=== PATIENT | female | born 1940 | race Caucasian/White ===

== ENCOUNTER 2017-11-01 14:57 | Inpatient (IN) | payer MEDICARE ==
[2017-11-01 15:22] LABS: #Eosinphils 0.1 thou/uL (0.0-0.7); #Lymphocytes 2.1 thou/uL (1.20-3.40); #Monocytes 0.6 thou/uL (0.11-0.59); #Neutrophils 7.6 thou/uL (1.40-6.50); %Basophils 0.5 % (0.0-1.0); %Eosinophils 0.9 % (0.0-10.0); %Lymphocytes 20.2 % (21.0-51.0); %Monocytes 5.8 % (0.0-10.0); %Neutrophils 72.6 % (42.0-75.0); Mean Corpuscular HGB CONC 36.7 g/dL (32.0-36.0); Mean Corpuscular Hemoglobin 32.6 pg (27.0-31.0); Mean Corpuscular Volume 88.8 fL (78.0-98.0); Mean Platelet Volume 8.1 fL (7.4-10.4); Platelet Count 232 thou/uL (130-400); White Blood Cell (WBC) Count 10.5 thou/uL (4.8-10.8)
[2017-11-01 15:43] LABS: ALT (SGPT) 35 U/L (8-55); AST (SGOT) 56 U/L (5-34); Albumin 4.1 g/dL (3.4-4.8); Alkaline Phosphatase 50 U/L (40-150); Anion Gap 17 mmol/L (10-20); BUN (Urea Nitrogen) 25 mg/dL (9.8-20.1); Bilirubin, Total 0.6 mg/dL (0.2-1.2); Calc. Creatinine Clearance 0 mL/min (70-130); Calcium 9.8 mg/dL (7.8-10.44); Carbon Dioxide 22 mmol/L (23-31); Chloride 100 mmol/L (98-107); Estimated GFR-MDRD 36; Glucose 408 mg/dL (83-110); Potassium 4.9 mmol/L (3.5-5.1); Protein, Total 7.1 g/dL (6.0-8.3); Sodium 134 mmol/L (136-145)
[2017-11-01 15:46] LABS: CKMB 0.9 ng/mL (0-6.6); Troponin I Less than 0.010 ng/mL (< 0.028)
[2017-11-01] MEDS ORDERED: Insulin Regular 300 UNITS/3 ML VIAL ONE (16:07)
[2017-11-01] MEDS ORDERED: HumaLOG 300 UNITS/3 ML VIAL SC PRN (16:25)
[2017-11-01] MEDS ORDERED: Acetaminophen 325 MG TAB PO PRN (16:25)
[2017-11-01] MEDS ORDERED: Ondansetron HCl/PF 4 MG/2 ML Vial IVP PRN (16:25)
[2017-11-01] MEDS ORDERED: Nitroglycerin 0.4 MG TAB (25 Tab Bottle) SL PRN (16:25)
[2017-11-01] MEDS ORDERED: hydrALAZINE 20 MG/ML VIAL SLOW IVP PRN (16:25)
[2017-11-01] MEDS ORDERED: Benzonatate 100 MG CAP PO PRN (16:25)
[2017-11-01] MEDS ORDERED: Loratadine 10 MG TAB PO PRN (16:25)
[2017-11-01] MEDS ORDERED: Bisacodyl 5 MG TAB PO PRN (16:25)
[2017-11-01] MEDS ORDERED: Senokot 8.6 MG TAB PO PRN (16:25)
[2017-11-01] MEDS ORDERED: Dextrose 50% Abboject 50 ML SYRINGE SLOW IVP PRN (16:25)
[2017-11-01] MEDS ORDERED: cloNIDine 0.1 MG TAB PO PRN (16:25)
[2017-11-01] MEDS ORDERED: traMADol HCl 50 MG TAB PO PRN (16:25)
[2017-11-01] MEDS ORDERED: Mag-Al 1200 mg/1200 mg/30 ML UDCUP PO PRN (16:25)
[2017-11-01] MEDS ORDERED: Dextrose 5% in Water 1,000 ML IV PRN (16:25)
[2017-11-01] MEDS ORDERED: Calcium Carbonate 500 MG ChewTAB PO PRN (16:25)
[2017-11-01 16:44] LABS: Hemoglobin A1c 9.8 % (4.0-6.0)
[2017-11-01 17:31] VITALS: BMI 31.4
[2017-11-01] MEDS: Sodium Chloride 0.9% 1,000 ML IV SCH (18:24)
[2017-11-01] MEDS ORDERED: Hydrochlorothiazide 25 MG TAB PO SCH (18:45)
[2017-11-01 18:55] LABS: Troponin I Less than 0.010 ng/mL (< 0.028)
--- NOTE | 2017-11-01 19:28 | RAD ---
PORTABLE CHEST ONE VIEW: Date: 11-01-17 Time: 6:37 a.m. History: Shortness of breath. FINDINGS: Comparison is made with exam of 05-08-05. The heart size is normal. The lungs are expanded without lobar consolidation, pneumothoraces or pleur al effusions. There are degenerative changes in the spine. IMPRESSION: No acute process. POS: [facility]
--- NOTE | 2017-11-01 19:31 | HP ---
DATE OF ADMISSION: 11/01/2017 PRIMARY CARE PHYSICIAN: Jessica Ayala M.D. CHIEF COMPLAINT: Dizziness and slow heart rate and low blood pressure and high blood sugar. HISTORY OF PRESENT ILLNESS: Ms. Ring is a very pleasant 77-year-old female with past medical histo ry of diabetes, hypertension, gout and dyslipidemia who presented to the emergency room with above-me ntioned complaint. History is mainly obtained by the patient herself and supplemented by her present in the room. Case has been discussed with admitting ER physician. Ms. Ring reports that she has been in her usual health up until this morning. Actually, since last morning, she feels that she has been a little bit confused. This morning, she was feeling dizzy whe n she woke up, but she managed to get her shower down. Later, she took more than her usual time in g etting ready for denominational and ended up not going because she was very slow. Later, when her ca me back, he found her still sitting on the dresser as he has left a few hours ago. She was still fee ling dizzy and not looking right. At that time, he checked her blood pressure and heart rate and her blood pressure was low with systolic blood pressure in the 80s and diastolic in the 50s. Her heart rate was consistently staying in the 30s. They also checked her blood sugar, which was reading very high above 400. At that time, they decided to bring her in. Other than that, the patient denies any similar symptoms in the past. She denies any recent illnesse s. She denies any chest pain or palpitations. She did feel short of breath when these symptoms were happening today. She denies any orthopnea, PND or lower extremity swelling. No abdominal pain, phu sea, vomiting or diarrhea. She does report that she easily gets dehydrated because her oral intake i s usually very poor. She has been stable on atenolol and verapamil among other blood pressure medication for a few years. She denies any recent changes in the medications or any recent new medications. Upon presentation to the ER, she was found to be bradycardic in the 50s, but not as bad as what was a t home. She underwent a general evaluation and her EKG showed sinus bradycardia with few PVCs and fi rst-degree AV block without any specific ST or T-wave changes or arrhythmias. Her blood work suggest ed acute kidney insufficiency and dehydration with BUN of 25, creatinine of 1.41. She was also found to be significantly hyperglycemic with a blood sugar of 408. She was resuscitated with IV fluids an d other than that, she did not require any imaging or intervention in the ER and is now being admitte d for further workup for sinus bradycardia. Since presentation to the floor, the patient has been qu ite hypertensive with her blood pressure of 190/84. PAST MEDICAL HISTORY: 1. Hypertension. 2. Gout. 3. Dyslipidemia. 4. Diabetes mellitus, non-insulin dependent. PAST SURGICAL HISTORY: 1. Bilateral tubal ligation. 2. Appendectomy. 3. section. PSYCHIATRIC HISTORY: No anxiety or depression. SOCIAL HISTORY: She quit smoking in 1971. Lives with her . No history of any alcohol or rajwinder g abuse. FAMILY HISTORY: Dad had diabetes. Otherwise, no significant family history of premature coronary ar [place] disease or stroke. ALLERGIES: Known allergies include ENALAPRIL, ERYTHROMYCIN. CURRENT MEDICATIONS: Include atenolol 100 mg p.o. b.i.d., verapamil 120 mg daily, Levemir 20 units a t bedtime, Vascepa 2 g p.o. b.i.d., hydrochlorothiazide 25 mg daily, fenofibric acid 160 mg daily, No rvasc 10 mg daily, amitriptyline 200 mg at bedtime. REVIEW OF SYSTEMS: Twelve-point review of systems is done and it is negative except for those mentio meg in the history and physical. LABORATORY DATA: Her CBC shows WBCs at 10.5, hemoglobin 14, platelet count of 232,000. Serum chemis try shows sodium of 134, bicarbonate 22, BUN 25, creatinine 1.41, blood sugar 408 with repeat blood s ugar of 295. Her hemoglobin A1c is elevated at 9.8. Cardiac enzymes, troponin less than 0.010 x2 an d CK-MB 0.9. She has mild elevation of her AST to 56 without any other lab abnormalities in the live r enzymes. IMAGING: A 12-lead EKG was reviewed by myself and shows first-degree AV block with sinus rhythm at 5 1 beats per minute. PHYSICAL EXAMINATION: VITAL SIGNS: Upon presentation to the emergency room, heart rate 50, respirations 18, saturating 95% on room air, temperature 97.8, blood pressure 161/78. GENERAL: No acute distress. The patient does appear somewhat slow, but is awake, alert, oriented x3 . HEENT: Mucous membrane is actually dry. No oropharyngeal exudate or erythema. Head is normocephali c, atraumatic. Pupils equal and reactive to light and accommodation. Extraocular movements intact. NECK: Supple without any lymphadenopathy, JVD or bruit. CHEST: Clear to auscultation without any wheezing, rales or rhonchi. Rate and rhythm is regular wit hout any murmur, rubs or gallops. ABDOMEN: Obese, soft, nontender, nondistended with positive bowel sounds. EXTREMITIES: Showed trace pitting edema bilaterally. NEUROLOGIC: Nonfocal. SKIN: Free of any rashes or bruises. Feel warm and dry to touch. PSYCHIATRIC: Normal affect. IMPRESSION AND PLAN: 1. Sinus bradycardia. This is most likely secondary to multiple sinus jessica blocking agents includi ng the beta blockers and calcium channel blockers. At this time, we will hold those for now. The gustabo serrato has not taken these since morning and her heart rate is already responding to that. Most recen t heart rate is 58. She has seen Cardiology, Dr. Jackson in the past multiple years ago. It is unlikel y that she has sick sinus syndrome, but she will be monitored on telemetry for same. We will obtain a transthoracic echocardiogram and request consultation with Dr. Jackson in the morning. Continue to tr end serial cardiac enzymes. Likelihood of acute coronary syndrome is very low. 2. Acute kidney insufficiency. The patient does have dehydration on examination. She will be resus citated with gentle IV fluids and we will avoid any nephrotoxic medications. 3. Uncontrolled hypertension. The patient seems to have difficult to control hypertension. Unfortu nately, she is allergic to DENICE inhibitors and her sinus bradycardia is secondary to calcium channel b locker and beta blockers. At this time, we will continue her amlodipine and hydrochlorothiazide and if necessary, we can add either hydralazine or reintroduce either beta brenden or calcium channel blo cker at a lower dose and monitor her heart rate in response to her blood pressure. 4. Diabetes mellitus. The patient's hemoglobin A1c is very high. She has received insulin in the e mergency room. Her diabetes seems uncontrolled at this time. We will put her on insulin sliding sca le in the hospital and monitor Accu-Cheks a.c. and at bedtime. 5. History of dyslipidemia. Continue with fenofibric acid. 6. Code status: FULL CODE. Discussed with the patient in detail. 7. Add deep venous thrombosis and gastrointestinal prophylaxis and p.r.n. medication orders. DISPOSITION: Ms. Ring is currently being admitted to the hospital for acute renal insufficiency, s inus bradycardia and dehydration and hypotension. Estimated length of stay is at least 2-3 midnight. Further management will depend upon her clinical course.
[2017-11-01] MEDS ORDERED: Non-Formulary Item 1 EACH (Levemir Flexpen [Levemir Flexpen] 20 UNIT) SC SCH (21:00)
[2017-11-01] MEDS: Amitriptyline HCl 100 MG TAB PO SCH (21:46)
[2017-11-01 21:50] LABS: Troponin I Less than 0.010 ng/mL (< 0.028)
[2017-11-01] MEDS: Insulin Glargine 20 UNITS in Pre-Filled Syringe SC SCH (21:50)
[2017-11-02 02:06] LABS: Bilirubin Negative (Negative); Blood, Urine Negative (Negative); Clarity CLEAR (Clear); Glucose, Urine (Dipstick) 500 mg/dL (Negative); Leukocyte Trace (Negative); Nitrite Negative (Negative); Protein, Urine (Dipstick) Negative (Neg-Trace); Specific Gravity, Urine 1.011 (1.002-1.036); Urobilinogen 0.2 mg/dL (0.2-1.0); pH, Urine 6.5 (5.0-9.0)
[2017-11-02 02:09] LABS: Bacteria/HPF None Seen HPF (None Seen); Hyaline Casts/LPF 0-3 HYALINE CAST LPF (0-3 Hyaline); Pathc Cast-AUWi Flag 0.14 (0-2.49); RBC/HPF 0-3 HPF (0-3); Squamous Epithelial 0-3 HPF (0-3)
[2017-11-02 04:55] LABS: #Basophils 0.1 thou/uL (0.0-0.2); #Eosinphils 0.1 thou/uL (0.0-0.7); #Lymphocytes 2.4 thou/uL (1.20-3.40); #Monocytes 0.6 thou/uL (0.11-0.59); #Neutrophils 2.8 thou/uL (1.40-6.50); %Basophils 1.6 % (0.0-1.0); %Eosinophils 2.4 % (0.0-10.0); %Lymphocytes 39.6 % (21.0-51.0); %Monocytes 9.5 % (0.0-10.0); %Neutrophils 46.8 % (42.0-75.0); Mean Corpuscular HGB CONC 34.6 g/dL (32.0-36.0); Mean Corpuscular Hemoglobin 30.9 pg (27.0-31.0); Mean Corpuscular Volume 89.4 fL (78.0-98.0); Mean Platelet Volume 7.9 fL (7.4-10.4); Platelet Count 193 thou/uL (130-400); Red Blood Cell (RBC) Count 4.22 mill/uL (4.20-5.40); White Blood Cell (WBC) Count 6.1 thou/uL (4.8-10.8)
[2017-11-02 05:20] LABS: Anion Gap 13 mmol/L (10-20); BUN (Urea Nitrogen) 20 mg/dL (9.8-20.1); Calc. Creatinine Clearance 85 mL/min (70-130); Calcium 10.2 mg/dL (7.8-10.44); Carbon Dioxide 29 mmol/L (23-31); Chloride 101 mmol/L (98-107); Estimated GFR-MDRD 69; Glucose 181 mg/dL (83-110); Potassium 3.7 mmol/L (3.5-5.1); Sodium 139 mmol/L (136-145)
[2017-11-02] MEDS: Sodium Chloride 0.9% 1,000 ML IV SCH (06:07)
[2017-11-02] MEDS ORDERED: (Icosapent Ethyl [Vascepa] 2 GM) PO SCH (08:00)
[2017-11-02] MEDS: Amlodipine 10 MG TAB PO SCH (08:54)
[2017-11-02] MEDS: Hydrochlorothiazide 25 MG TAB PO SCH (08:55)
[2017-11-02] MEDS: Enoxaparin Sodium 40 MG/0.4 ML SYRINGE SC SCH (08:55)
[2017-11-02] MEDS: Fenofibrate Nanocrystallized 145 MG TAB PO SCH (08:58)
[2017-11-02] MEDS: HumaLOG 300 UNITS/3 ML VIAL SC PRN ×3 (09:03→18:08)
--- NOTE | 2017-11-02 15:22 | PDOC.PN ---
- Subjective Encounter Start Date: 11/02/17 Encounter Start Time: 15:20 Subjective: no new complaints. feels better. no more episodes of dizziness - Objective MAR Reviewed: Yes Vital Signs & Weight: Vital Signs (12 hours) Temp Pulse Resp BP BP Pulse Ox 11/02/17 15:06 97.5 F L 75 16 176/76 H 97 11/02/17 11:09 98.0 F 64 16 163/72 H 96 11/02/17 08:54 74 11/02/17 08:52 98 F 74 16 168/74 H 94 L 11/02/17 04:00 97.3 F L 57 L 16 139/65 97 Weight Weight 197 lb I&O: 11/01/17 11/02/17 11/03/17 06:59 06:59 06:59 Intake Total 1066 Output Total 1600 600 Balance -534 -600 Result Diagrams: 11/02/17 04:05 11/02/17 04:05 Additional Labs: Accuchecks 11/02/17 11/01/17 11/01/17 06:02 20:47 17:52 POC Glucose 206 H 362 H 295 H labs reviewed Laboratory Tests 11/01/17 11/01/17 11/01/17 15:09 15:13 18:20 Creatinine 1.41 H Troponin I Less than 0.010 Less than 0.010 11/01/17 11/02/17 21:14 04:05 Creatinine 0.81 Troponin I Less than 0.010 Phys Exam - Physical Examination Constitutional: NAD HEENT: PERRLA, moist MMs, sclera anicteric, oral pharynx no lesions Neck: no nodes, no JVD, supple, full ROM Respiratory: no wheezing, no rales, no rhonchi, clear to auscultation bilateral Cardiovascular: RRR, no significant murmur, no rub Gastrointestinal: soft, non-tender, no distention, positive bowel sounds Musculoskeletal: no edema, pulses present Neurological: non-focal, normal sensation, moves all 4 limbs Psychiatric: normal affect, A&O x 3 Dx/Plan (1) Sinus bradycardia Code(s): R00.1 - BRADYCARDIA, UNSPECIFIED Status: Acute Comment: to BB and CCB. both on hold (2) HTN (hypertension) Code(s): I10 - ESSENTIAL (PRIMARY) HYPERTENSION Status: Chronic (3) HLD (hyperlipidemia) Code(s): E78.5 - HYPERLIPIDEMIA, UNSPECIFIED Status: Acute (4) DM2 (diabetes mellitus, type 2) Status: Chronic - Plan plan discussed w/ family, DVT proph w/SCDs cont to hold BB and CCB.BP running high.will use prn meds -: ECHO results pending.cardiology consult pending -: HR improved by holding meds as above.monitor -: may need to re introduce BB at lower dose.pt was on very high dose -: Send Urine for Cx. no Abx for now as asymptomatic * .Hemodynamically stable. * monitor Review of Systems - Review of Systems Constitutional: negative: fever, chills, sweats, weakness, malaise, other Respiratory: negative: Cough, Dry, Shortness of Breath, Hemoptysis, SOB with Excertion, Pleuritic Pain, Sputum, Wheezing Cardiovascular: negative: chest pain, palpitations, orthopnea, paroxysmal nocturnal dyspnea, edema, light headedness, other Gastrointestinal: negative: Nausea, Vomiting, Abdominal Pain, Diarrhea, Constipation, Melena, Hematochezia, Other Genitourinary: negative: Dysuria, Frequency, Incontinence, Hematuria, Retention , Other Musculoskeletal: negative: Neck Pain, Shoulder Pain, Arm Pain, Back Pain, Hand Pain, Leg Pain, Foot Pain, Other Skin: negative: Rash, Lesions, Christofer, Bruising, Other Neurological: negative: Weakness, Numbness, Incoordination, Change in Speech, Confusion, Seizures, Other - Medications/Allergies Allergies/Adverse Reactions: Allergies Allergy/AdvReac Type Severity Reaction Status Date / Time enalapril Allergy TONGUE Verified 04/10/14 10:55 SWELLING erythromycin base Allergy LIPS SWELL Verified 04/10/14 10:55 Medications: Current Medications Acetaminophen (Tylenol) 650 mg PO Q4H PRN PRN Reason: Headache/Fever or Pain Al Hydroxide/Mg Hydroxide (Maalox) 30 ml PO Q6H PRN PRN Reason: Heartburn or Indigestion Amitriptyline HCl (Elavil) 200 mg PO HS [facility] Last Admin: 11/01/17 21:46 Dose: 200 mg Amlodipine Besylate (Norvasc) 10 mg PO DAILY [facility] Last Admin: 11/02/17 08:54 Dose: 10 mg Benzonatate (Tessalon) 100 mg PO Q4H PRN PRN Reason: Cough Bisacodyl (Dulcolax) 10 mg PO DAILYPRN PRN PRN Reason: Constipation Calcium Carbonate (Tums) 1,000 mg PO Q4H PRN PRN Reason: Heartburn or Indigestion Clonidine (Catapres) 0.1 mg PO Q4H PRN PRN Reason: Systolic BP > 160 Dextrose/Water (Dextrose 50%) 25 gm SLOW IVP PRN PRN PRN Reason: Hypoglycemia Enoxaparin Sodium (Lovenox) 40 mg SC 0900 [facility] Last Admin: 11/02/17 08:55 Dose: 40 mg Fenofibrate (Tricor) 145 mg PO DAILY [facility] Last Admin: 11/02/17 08:58 Dose: 145 mg Glucagon (Glucagon) 1 mg IM PRN PRN PRN Reason: Hypoglycemia Hydralazine HCl (Apresoline) 10 mg SLOW IVP Q4H PRN PRN Reason: Systolic BP > 170 Last Admin: 11/01/17 18:23 Dose: 10 mg Hydrochlorothiazide (Hydrochlorothiazide) 25 mg PO DAILY [facility] Last Admin: 11/02/17 08:55 Dose: 25 mg Dextrose/Water (D5w) 1,000 mls @ 0 mls/hr IV .Q0M PRN; As Directed PRN Reason: Hypoglycemia Sodium Chloride (Normal Saline 0.9%) 1,000 mls @ 75 mls/hr IV .[id number] [facility] Last Admin: 11/02/17 06:07 Dose: 1,000 mls Insulin Glargine 20 units/ (Miscellaneous Medication) 0.2 mls @ 0 mls/hr SC [facility] Last Admin: 11/01/17 21:50 Dose: 0.2 mls Insulin Human Lispro (Humalog) 0 units SC .MODERATE SLIDING SC PRN PRN Reason: Moderate Correctional Scale Last Admin: 11/02/17 11:16 Dose: 4 units Insulin Human Lispro (Humalog) 0 units SC .BEDTIME SLIDING SC PRN PRN Reason: Bedtime Correctional Scale Last Admin: 11/01/17 21:49 Dose: 5 unit Loratadine (Claritin) 10 mg PO DAILYPRN PRN PRN Reason: Sinus Symptoms Nitroglycerin (Nitrostat) 0.4 mg SL Q5MIN PRN PRN Reason: Chest Pain (Icosapent Ethyl [ (Vascepa] 2 Gm)) 2 gm PO BID-WM HUYEN Ondansetron HCl (Zofran) 4 mg IVP Q6H PRN PRN Reason: Nausea/Vomiting Senna (Senokot) 2 tab PO HSPRN PRN PRN Reason: Constipation Tramadol HCl (Ultram) 50 mg PO Q4H PRN PRN Reason: Moderate Pain (4-6)
[2017-11-02] MEDS ORDERED: Atenolol 25 MG TAB PO SCH ×2 (15:30→20:00)
[2017-11-02] MEDS: Amitriptyline HCl 100 MG TAB PO SCH (22:07)
[2017-11-02] MEDS: hydrALAZINE 25 MG TAB PO SCH (22:07)
[2017-11-02] MEDS: Insulin Glargine 20 UNITS in Pre-Filled Syringe SC SCH (22:09)
--- NOTE | 2017-11-03 01:08 | CON ---
DATE OF CONSULTATION: 11/02/2017 HISTORY: Lucía Ring is a 77-year-old white female, who has been evaluated by Dr. Jackson in the past. In 2004, Ms. Ring had a syncopal episode and she was evaluated in the hospital at that time, and also she was seen in the office in 01/2011. She underwent Cardiolite test in the office, which revea led no evidence of ischemia. She states that her blood pressure medicines have not changed for some time. She has been on very hi gh dose of atenolol as well as verapamil low dose. Yesterday morning, she started to feel very dizzy and lethargic. She continued to be somewhat slow in getting ready for mandaen and her checke d her blood pressure. Systolic pressure was in the 80s, diastolic in the 50s; and her heart rate was staying in the 30s. The patient was brought to emergency room. EKG here on admission revealed sinu s bradycardia with a rate of 51 per minute. She had some shortness of breath with that, but did not have any chest discomfort. She denies any PND, orthopnea, or leg edema. She was also found to have blood sugar in the 400s and was somewhat dehydrated looking at her BUN and creatinine. PAST MEDICAL HISTORY: Hypertension, hyperlipidemia, diabetes, gout, history of syncope in 2004. OPERATIONS: Bilateral tubal ligation, appendectomy, section, lumbar laminectomy. MEDICATIONS: Amitriptyline 200 mg at bedtime, amlodipine 10 mg daily, atenolol 100 mg b.i.d., fenofi brate 160 daily, hydrochlorothiazide 25 daily, Vascepa 2 grams b.i.d., Levemir 20 units at bedtime, v erapamil 120 at bedtime. ALLERGIES: ENALAPRIL causes angioedema and ERYTHROMYCIN. SOCIAL HISTORY: She stopped smoking in 1971. She does not drink. FAMILY HISTORY: Negative for coronary artery disease. REVIEW OF SYSTEMS: Twelve-point review of systems otherwise is unremarkable. PHYSICAL EXAMINATION: VITAL SIGNS: Blood pressure 176/76, pulse is 75. HEENT: PERRL. NECK: Supple. CHEST: Clear. CARDIAC: S1 and S2 are normal without any S3, S4, or murmurs. Carotid upstrokes normal without brui ts. ABDOMEN: Normal bowel sounds without tenderness, organomegaly. The abdomen is obese. EXTREMITIES: Revealed no clubbing, cyanosis, or edema. NEUROLOGIC: Grossly intact. SKIN: Warm and dry. LABORATORY DATA: Admission EKG revealed sinus bradycardia with first-degree AV block, left-axis jluis ation, nonspecific ST-segment changes. CBC is unremarkable. On admission, her BUN was 25, creatinin e 1.41; now, BUN 20 and creatinine 0.81. Sodium 139, potassium 3.7, chloride 101, carbon dioxide 29. Cardiac enzymes were unremarkable. IMPRESSION: 1. Episode of extreme bradycardia reportedly with heart rates in the 30s, as well as hypotension. B lood sugar was over 400 and BUN and creatinine were elevated. She may have been volume depleted from her poorly controlled diabetes. She also is on extremely high dose of beta brenden as well as verap dodie. 2. Acute kidney injury, which has resolved. 3. Poorly controlled hypertension. 4. Diabetes mellitus, poorly controlled. 5. History of dyslipidemia - fasting lipid profile will be performed. PLAN: Echo results are pending. She will be restarted on atenolol, but at a much reduced dose - 50 mg daily. She will be placed on hydralazine 50 mg t.i.d. DENICE inhibitors and ARB drug should probabl y be avoided with her history of angioedema with enalapril. She also may have some problems with ort hostatic hypotension with a very high dose of amitriptyline.
[2017-11-03 05:34] LABS: Cardiac Risk 6.8 (Less than 4.5); Cholesterol 196 mg/dl (< 200 Desired); HDL Cholesterol 29 mg/dL (>60 Neg Risk); Triglycerides 470 mg/dL (Less than 150)
[2017-11-03] MEDS: Amlodipine 10 MG TAB PO SCH (08:03)
[2017-11-03] MEDS: Enoxaparin Sodium 40 MG/0.4 ML SYRINGE SC SCH (08:04)
[2017-11-03] MEDS: hydrALAZINE 25 MG TAB PO SCH ×2 (08:04→15:00)
[2017-11-03] MEDS: Hydrochlorothiazide 25 MG TAB PO SCH (08:04)
[2017-11-03] MEDS: Fenofibrate Nanocrystallized 145 MG TAB PO SCH (08:04)
[2017-11-03] MEDS: HumaLOG 300 UNITS/3 ML VIAL SC PRN (08:10)
[2017-11-03] MEDS ORDERED: Atenolol 50 MG TAB PO SCH (09:00)
--- NOTE | 2017-11-03 13:37 | PDOC.CTH ---
Cardiology Progress Note - Subjective The pt seen and examined. No overnight events. No cardiac complaints. - Objective Vital Signs Temp Pulse Resp BP Pulse Ox 11/03/17 11:52 98.5 F 63 16 157/73 H 96 11/03/17 08:04 72 11/03/17 08:03 72 11/03/17 08:01 98.3 F 72 16 125/83 94 L 11/03/17 06:15 97.8 F 67 18 145/70 H 95 Weight 197 lb 11/02/17 11/03/17 11/04/17 06:59 06:59 06:59 Intake Total 1066 2200 120 Output Total 1600 3400 1000 Balance -534 1200 -880 - Physical Examination General/Neuro: alert & oriented x3 Neck: no JVD present Lungs: CTA Heart: RRR Abdomen: soft Extremities: other: (No edema) - Telemetry Telemetry Rhythm: SR 70s - Labs Result Diagrams: 11/02/17 04:05 11/02/17 04:05 Troponin/CKMB CK-MB (CK-2) 0.9 ng/mL (0-6.6) 11/01/17 15:09 Troponin I Less than 0.010 ng/mL (< 0.028) 11/01/17 21:14 - Assessment/Plan 1. Sinus bradycardia - Well controlled HR 60-70s with decreasing Atenolol from 100mg to 50mg qd. 2. HTN - stable with Atenolol 50mg qd, Norvasc 10mg qd, Hydralazine 50mg TID, and HCTZ 25mg qd. No DENICE due to hx of angioedema with enalapril 3. Hyperlipidemia - elevated triglyceride and LDL with Tricor 145mg qd and Vascepa 2gm; start Zocor 20mg qd from tonight 4. DM type 2 - managed by PCP 5. Gout - stable MAR reviewed * Echo on 11/02/17 showed EF 50-55%, mod MR, mild AR, mild-mod TR, grade I diastolic dysfunction * From Cardiac standpoint, the pt is stable to d/c home. The pt will f/u with Dr Jackson' office within 2-4 wks and recheck her Lipid panel within 3 months. Review of Systems - Review of Systems Constitutional: reports: no symptoms reported EENTM: reports: no symptoms reported Respiratory: reports: no symptoms reported Cardiac (ROS): reports: no symptoms reported ABD/GI: reports: no symptoms reported : reports: no symptoms reported Musculoskeletal: reports: no symptoms reported Skin: reports: no symptoms reported Neurological: reports: no symptoms reported
--- NOTE | 2017-11-03 14:25 | DIS ---
DATE OF ADMISSION: 11/01/2017 DATE OF DISCHARGE: 11/03/2017 PRIMARY CARE PHYSICIAN: Dr. Jessica Ayala. DISCHARGE DIAGNOSES: 1. Sinus bradycardia due to sinus jessica blockade from high dose of beta brenden and calcium channel brenden, resolved. 2. Hypertension. 3. Diabetes mellitus. 4. Gout. 5. Dyslipidemia. DISCHARGE MEDICATIONS: New medications; atenolol 50 mg daily, Zocor 20 mg daily, hydralazine 50 mg p .o. t.i.d. Discontinue following; atenolol 100 mg p.o. b.i.d. and verapamil. Continue following; Le vemir 20 units at bedtime, Vascepa 2 grams p.o. b.i.d., hydrochlorothiazide 25 mg daily, fenofibric a xenia 160 mg daily, Norvasc 10 mg daily, amitriptyline 20 mg at bedtime. INHOUSE CONSULTATIONS: Cardiology, Dr. Crawford, and Renetta. PROCEDURES DONE IN THE HOSPITAL: Transthoracic echocardiogram which showed mild diastolic dysfunctio n, EF of 50%-55%, mild to moderate tricuspid regurgitation. HISTORY OF PRESENTING ILLNESS: Ms. Ring is a very pleasant 77-year-old female who presented to the emergency room with complaints of slow heart rate as recorded in the home blood pressure monitor and low blood pressure as well. She had some associated dizziness and confusion with that. Upon presen tation, she was hemodynamically stable and her heart rate was in the 50s with EKG showing only first- degree AV block. She was hyperglycemic with blood sugar of 408 and mild evidence of acute renal insu fficiency with creatinine of 1.41. She was admitted for further evaluation. Please see admission hi story and physical for further details. HOSPITAL COURSE: The patient was found to be in very high dose of atenolol as well as verapamil. Th is was stopped and her heart rate responded normally. Her heart rate was in the 70s with stopping lex th these medications. Cardiology was consulted. Echocardiogram was done. Dr. Crawford saw the jia ent and initially agreed with above. Atenolol was slowly reintroduced at a much lower dose and hydra lazine t.i.d. was added for blood pressure control and patient tolerated both interventions very well . Transthoracic echocardiogram did not show any acute changes, but diastolic dysfunction. She was s een and examined by Dr. Jackson, her own associate professor of physics prior to discharge and has been cleared for discha rge. She is currently asymptomatic and will be discharged home. She was seen and examined prior to discharge and all questions were answered. Discharge plan was dis cussed with the patient and her who verbalized understanding. Prescriptions were provided. PHYSICAL EXAMINATION: VITAL SIGNS: This morning, temperature 98.5, pulse of 63, respirations 16, saturating 96% on room ai r, blood pressure 157/73. GENERAL: No acute distress, awake, alert, oriented x3. CHEST: Clear to auscultation without any wheezing, rales or rhonchi. Rhythm is regular without any murmur, rubs or gallops. EXTREMITIES: Free of any cyanosis, clubbing, or edema. LABORATORY DATA: Pending labs at this time urine culture. Her urinalysis had few WBCs and leukocyte esterase without any nitrites or bacteria. Urine culture was obtained and is pending at this time. No antibiotics have been started. She is instructed to follow up with her primary care physician wi th results of the urine culture and treatment if necessary. Total time spent in discharge of this patient is 32 minutes.
[2017-11-03 15:00] VITALS: BP 147/68; TEMP 97.6
[2017-11-03] MEDS ORDERED: Simvastatin 20 MG TAB PO SCH (21:00)
== END 2017-11-03 15:28 | disposition home or self-care (01) | DRG 309 ==
LOC: ERS 14:57 → 2NO 17:23
PROVIDERS: ADMIT Internal Medicine; ATTEND Internal Medicine
DX: R00.1 Bradycardia, unspecified (principal); N17.9 Acute kidney failure, unspecified; T44.7X Poisoning by, adverse effect of and underdosing of beta-adrenoreceptor antagonists; I10 Essential (primary) hypertension; E11.65 Type 2 diabetes mellitus with hyperglycemia; M10.9 Gout, unspecified; E78.5 Hyperlipidemia, unspecified
CPT/HCPCS: 36415; 36416; 71045; 80048; 80053; 80061; 81003; 81015; 82553; 83036; 84484; 85025; 87086; 93005; 93306; A4216; J0360; J1650; J1815

== ENCOUNTER 2018-08-12 09:19 | Observation (INO) | payer MEDICARE ==
[2018-08-11 15:10] VITALS: BMI 29.0
[2018-08-12 10:14] LABS: #Eosinphils 0.1 thou/uL (0.0-0.7); #Lymphocytes 2.2 thou/uL (1.20-3.40); #Monocytes 0.5 thou/uL (0.11-0.59); #Neutrophils 2.8 thou/uL (1.40-6.50); %Basophils 0.5 % (0.0-1.0); %Eosinophils 2.3 % (0.0-10.0); %Lymphocytes 38.6 % (21.0-51.0); %Monocytes 8.7 % (0.0-10.0); %Neutrophils 49.8 % (42.0-75.0); Mean Corpuscular HGB CONC 34.1 g/dL (32.0-36.0); Mean Corpuscular Hemoglobin 30.9 pg (27.0-31.0); Mean Corpuscular Volume 90.5 fL (78.0-98.0); Mean Platelet Volume 8.5 fL (7.4-10.4); Platelet Count 233 thou/uL (130-400); RBC Distribution Width 10.9 % (11.5-14.5); Red Blood Cell (RBC) Count 4.54 mill/uL (4.20-5.40); White Blood Cell (WBC) Count 5.6 thou/uL (4.8-10.8)
[2018-08-12 10:19] LABS: PTT 25.7 SEC (22.9-36.1); Prothrombin Time 13.8 SEC (12.0-14.7)
[2018-08-12 10:34] LABS: Anion Gap 15 mmol/L (10-20); BUN (Urea Nitrogen) 20 mg/dL (9.8-20.1); Calc. Creatinine Clearance 74 mL/min (70-130); Calcium 9.7 mg/dL (7.8-10.44); Carbon Dioxide 24 mmol/L (23-31); Chloride 105 mmol/L (98-107); Estimated GFR-MDRD 66; Glucose 180 mg/dL (83-110); Potassium 4.1 mmol/L (3.5-5.1); Sodium 140 mmol/L (136-145)
[2018-08-12] MEDS ORDERED: Heparin 10,000 UNITS/1 ML VIAL ONE ×2 (11:52→14:57)
[2018-08-12] MEDS ORDERED: Rocuronium Bromide 10 MG/ML (10ML VIAL) ONE (12:06)
[2018-08-12] MEDS ORDERED: Heparin 30,000 units/30 ml VIAL ONE (12:06)
[2018-08-12] MEDS ORDERED: Lidocaine 1% PF 5 ML VIAL ONE (12:06)
[2018-08-12] MEDS ORDERED: PHENYLEPHRINE-NS 100 MCG/ML 10 ML SYRINGE ONE ×2 (12:06→15:11)
[2018-08-12] MEDS ORDERED: PROPOFOL 200 MG/20 ML VIAL ONE (12:06)
[2018-08-12] MEDS ORDERED: Glycopyrrolate 0.2 MG/ML 5 ML SYRINGE ONE (12:06)
[2018-08-12] MEDS ORDERED: Fentanyl 100 MCG/2 ML VIAL ONE (12:17)
[2018-08-12] MEDS ORDERED: Heparin 25,000 units/D5W 500 ML ONE (14:46)
[2018-08-12] MEDS ORDERED: Isoproterenol 0.2 MG/1 ML AMP ONE (15:39)
[2018-08-12] MEDS ORDERED: Protamine Sulfate 50 MG/5 ML VIAL ONE (16:12)
[2018-08-12] MEDS ORDERED: Furosemide 40 MG/4 ML VIAL ONE (16:12)
[2018-08-12] MEDS ORDERED: Ondansetron HCl/PF 4 MG/2 ML Vial IVP PRN (17:01)
[2018-08-12] MEDS ORDERED: Promethazine HCl 25 MG/ML VIAL SLOW IVP PRN (17:01)
[2018-08-12] MEDS ORDERED: Promethazine HCl 25 MG/ML VIAL IM PRN (17:01)
[2018-08-12] MEDS ORDERED: Amitriptyline HCl 100 MG TAB PO PRN (17:41)
[2018-08-12] MEDS ORDERED: TRULICITY PATIENT'S HOME MEDICATION FS SCH (17:45)
[2018-08-12] MEDS ORDERED: Acetaminophen/Codeine 30-300mg Tablet PO PRN ×2 (17:45)
[2018-08-12] MEDS ORDERED: metFORMIN 500 MG TAB PO SCH (21:00)
[2018-08-12] MEDS ORDERED: VASCEPA 1 GM PO SCH (21:00)
[2018-08-12] MEDS ORDERED: Simvastatin 20 MG TAB PO SCH (21:00)
[2018-08-12] MEDS: Apixaban 5 MG TAB PO SCH (21:40)
[2018-08-12] MEDS: Insulin Glargine 20 UNITS in Pre-Filled Syringe SC SCH (21:40)
--- NOTE | 2018-08-12 22:59 | OP ---
DATE OF PROCEDURE: 08/12/2018 PROCEDURES PERFORMED: Electrophysiology study and radiofrequency ablation. REASON FOR PROCEDURE: Ms. Ring is a 78-year-old female with history of atrial flutter and fibrillation both. She has been anticoagulated sufficiently. She has attempted Multaq, but it did not control her arrhythmia. She is here for an ablation procedure. DESCRIPTION OF PROCEDURE: The patient received propofol by Anesthesia specialist. After adequate level of sedation achieved, the left and right femoral veins area were prepped, draped, and anesthetized using subcutaneous lidocaine and on the left side, a Preface sheath and an 11-Latvian sheath were introduced, through which an ICE catheter was advanced to the right atrium, which was used to monitor transseptal procedure/monitoring any pericardial effusion throughout the procedure. On the right side, two 8-Latvian short sheath was introduced through which a ThermoCool SFST catheter was advanced to the right atrium. 3D map of the right atrium, coronary sinus, and His bundle area were obtained. Following that, a DuoDeca catheter was positioned through coronary sinus and the right atrial position. The following findings were noted. Baseline rhythm is atrial flutter, appears to be typical isthmus dependent in morphology. The cycle length was 250 milliseconds. Variable AV conduction was seen. QRS duration 95 milliseconds, QT 313 milliseconds, HV interval was 41 milliseconds measured. The right pacing at the isthmus entering the atrial flutter and the post isthmus time was matching the tachycardia cycle length suggestive of isthmus dependency. Following that, the cavotricuspid isthmus ablation was performed and during the ablation, the flutter terminated. Following that, the transisthmus time increased to 180 milliseconds and the transisthmus block was demonstrated by longest transisthmus time adjacent to the ablation line was noted. We proceeded with the transseptal puncture with ICE and fluoroscopic monitoring. IV heparin was administered in a bolus and drip to keep ACT over 350 throughout the procedure. SL1 transseptal sheaths were introduced and via the transseptal procedure, they positioned the left atrium. A 20 pole deflectable Lasso catheter as well as a ThermoCool SFST catheter was advanced to the left atrium. 3D map of the left atrium was performed. A single common ostium of the left pulmonary veins was noted. The pulmonary venous isolation of the common left and bith right pulmonary veins were performed. Posterior wall isolation also performed with a roof line and inferior line. Due to a gap right on the esophagus, suboptimal isolation of posterior wall seen, ablation here was abandoned to avoid excessive esophageal heating. At this point, Isuprel was administered and burst atrial pacing was also performed. We were able to still induce atrial fibrillation, but that was self terminating. During Isuprel, no significant amount of PACs were seen. Following that, any reconnections were checked and they were re-ablated. Ventricular pacing ruled out concealed accessory pathway from the left ventricle. At the end of the case, we checked the transisthmus line as well and the both echocardiogram and cine of the heart ruled out significant pericardial effusion. The heparin was stopped and it was reversed with protamine. The sheaths were pulled in the manager lab. The patient tolerated the procedure well. The total ablation time was 22 minutes and 19 seconds. Total ablation lesions were 34 counted. Forty may were delivered throughout the procedure. CONCLUSION: 1. Successful cavotricuspid isthmus ablation terminating baseline typical atrial flutter. 2. Successful pulmonary venous isolation procedure, eliminating inducibility of sustained atrial fibrillation. 3. No evidence of accessory pathway. Normal His-Purkinje and AV jessica function. 4. No other inducible arrhythmias are seen. Job ID: [id number] [facility]
[2018-08-13] MEDS ORDERED: Protamine Sulfate 50 MG/5 ML VIAL ONE (05:23)
[2018-08-13] MEDS: Apixaban 5 MG TAB PO SCH (08:32)
[2018-08-13] MEDS ORDERED: Fenofibrate Nanocrystallized 145 MG TAB PO SCH (09:00)
[2018-08-13] MEDS ORDERED: Amlodipine 10 MG TAB PO SCH (09:00)
[2018-08-13] MEDS ORDERED: Atenolol 50 MG TAB PO SCH (09:00)
[2018-08-13] MEDS ORDERED: Hydrochlorothiazide 25 MG TAB PO SCH (09:00)
[2018-08-13] MEDS: Insulin Glargine 20 UNITS in Pre-Filled Syringe SC SCH (09:26)
[2018-08-13 11:58] VITALS: BP 117/65; TEMP 97.3
--- NOTE | 2018-08-13 12:31 | DIS ---
DATE OF ADMISSION: 08/12/2018 DATE OF DISCHARGE: 08/13/2018 ADMITTING DIAGNOSIS: Atrial fibrillation. PROCEDURES PERFORMED: Electrophysiology study and radiofrequency ablation for atrial fibrillation and atrial flutter. HISTORY OF PRESENT ILLNESS: Ms. Ring is a pleasant 78-year-old woman with history of atrial fibrillation and flutter both. She has been anticoagulated sufficiently and her arrhythmia issues were refractory to Multaq. She was admitted to observation for an elective outpatient ablation to address her arrhythmia issues. She underwent successful cavotricuspid isthmus ablation terminating her baseline typical atrial flutter and also successful pulmonary venous isolation procedure eliminating disability of sustained atrial fibrillation. There was no evidence of accessory pathway. She had normal His-Purkinje and AV jessica function. She is not inducible for any additional arrhythmias. She received a total of 22 minutes and 19 seconds RF energy delivered. SUBJECTIVE: Ms. Ring is feeling well this morning. She denies any heart racing, palpitations, chest pain, pressure, syncope, near syncope, stroke, or stroke- like symptoms. She is tolerating p.o. intake and ambulating throughout the blankenship. Her Rincon catheter was removed post-procedurally and she is voiding normally. She denies any shortness of breath or postablation chest discomfort. OBJECTIVE: VITAL SIGNS: Temperature 98 degrees Fahrenheit, pulse 90, blood pressure 147/70, respirations 16, oxygen is 94% on room air. GENERAL: The patient is alert, oriented. Speech is clear. Affect is appropriate. NEUROLOGIC: She is neurologically intact and exam is nonfocal. HEART: Rate is regularly regular with a crisp S1, S2. PMI is nondisplaced. LUNGS: Clear to auscultation bilaterally without wheezes, crackles, or rhonchi. ABDOMEN: Soft and nontender without palpable masses. Hepatojugular reflux is negative. There is no jugular venous distention. EXTREMITIES: Warm and dry to touch without clubbing, cyanosis or edema. DATABASE: EKG and telemetry were all personally reviewed and reflect sinus rhythm with first degree AV block and otherwise normal intervals. No atrial arrhythmia she has been seen overnight and she recovers from her ablation. DISCHARGE INSTRUCTIONS: No lifting more than 10 pounds for 1 week. No soaking baths for 1 week. In 1 week, she may begin to resume activity as tolerated without restrictions. She will follow up with [facility] in 6 weeks post ablation. She is to contact [facility] with any additional post ablation questions or concerns. [facility] post atrial fibrillation ablation discharge factor was discussed and given to the patient prior to discharge. DISCHARGE MEDICATIONS: 1. Resuming home medications of cinnamon supplement daily. 2. Vitamin D3 daily. 3. Vitamin B12 daily. 4. Vitamin C daily. 5. Vitamin E daily. 6. Zinc daily. 7. [place] 3 daily. 8. Zocor 20 mg p.o. q.h.s. 9. Levemir as directed. 10. Vascepa 2 g p.o. b.i.d. 11. Tenormin 50 mg daily. 12. Hydrochlorothiazide 25 mg daily. 13. Fenofibrate 160 mg daily. 14. Amitriptyline 200 mg q.h.s. 15. Metformin 500 mg p.o. b.i.d. 16. Amlodipine 10 mg daily. 17. Eliquis 5 mg p.o. b.i.d. 18. Trulicity as directed. Discontinued medications: 1. Multaq. New prescriptions electronically submitted. 1. Sucralfate 1 g p.o. q.i.d. x2 weeks. 2. Pantoprazole 40 mg p.o. daily x30 days. 3. Furosemide 40 mg p.o. p.r.n. shortness of breath and weight gain. 4. Potassium chloride 20 mEq p.o. p.r.n. only to be taken if taking Lasix for shortness of breath and weight gain. CONDITION AT DISCHARGE: Stable. I examined the pt and took part in decision making process. Agree with Ms Winkler assessment and plan. Job ID: [id number] MTDD
--- NOTE | 2018-08-13 14:32 | EKG ---
Test Reason : Blood Pressure : / mmHG Vent. Rate : 080 BPM Atrial Rate : 080 BPM P-R Int : 244 ms QRS Dur : 120 ms QT Int : 378 ms P-R-T Axes : 069 -44 069 degrees QTc Int : 435 ms Sinus rhythm with 1st degree A-V block Left axis deviation Non-specific intra-ventricular conduction delay Nonspecific T wave abnormality Abnormal ECG When compared with ECG of 01-NOV-2017 15:03, Significant changes have occurred Confirmed by JOHN MIRANDA, SAyana (4) on 08/13/2018 2:32:04 PM Referred By: AKIL Confirmed By:DR. Haresh LOPEZ MD
--- NOTE | 2018-08-13 14:34 | EKG ---
Test Reason : Blood Pressure : / mmHG Vent. Rate : 096 BPM Atrial Rate : 096 BPM P-R Int : 222 ms QRS Dur : 112 ms QT Int : 388 ms P-R-T Axes : 094 -45 085 degrees QTc Int : 490 ms Sinus rhythm with 1st degree A-V block Left anterior fascicular block Prolonged QT Abnormal ECG When compared with ECG of 12-AUG-2018 17:14, (Unconfirmed) Nonspecific T wave abnormality no longer evident in Inferior leads Nonspecific T wave abnormality, improved in Lateral leads QT has lengthened Confirmed by JOHN MIRANDA, . SAyana (4) on 08/13/2018 2:33:44 PM Referred By: [facility] Confirmed By:DR. Haresh LOPEZ MD
== END 2018-08-13 15:29 | disposition home or self-care (01) ==
LOC: CCL 09:19 → 2SW 18:05
PROVIDERS: ADMIT Internal Medicine Cardiovascular Disease; ATTEND Internal Medicine Cardiovascular Disease
PROC: 02583ZZ Destruction of Conduction Mechanism, Percutaneous Approach (ICD-10-PCS; principal; 2018-08-12)
PROC: 02K83ZZ Map Conduction Mechanism, Percutaneous Approach (ICD-10-PCS; 2018-08-12)
PROC: 4A023FZ Measurement of Cardiac Rhythm, Percutaneous Approach (ICD-10-PCS; 2018-08-12)
PROC: 4A0234Z Measurement of Cardiac Electrical Activity, Percutaneous Approach (ICD-10-PCS; 2018-08-12)
DX: I48.1 Persistent atrial fibrillation (principal); I48.3 Typical atrial flutter; I10 Essential (primary) hypertension; E78.5 Hyperlipidemia, unspecified; E11.9 Type 2 diabetes mellitus without complications; Z79.01 Long term (current) use of anticoagulants; Z79.4 Long term (current) use of insulin; Z79.899 Other long term (current) drug therapy; Z88.8 Allergy status to other drugs, medicaments and biological substances
CPT/HCPCS: 76942; 80048; 82962 ×2; 85025; 85347 ×2; 85610; 85730; 93005 ×2; 93613; 93623; 93655; 93656; 93662; C1730; C1731; C1732 ×2; C1759; C1769; G0378; 36416; 93010; J1644; J1825; J1940; J2001; J2704; J2720; J3010

== ENCOUNTER 2018-09-16 15:10 | Outpatient (CLI) | payer MEDICARE ==
--- NOTE | 2018-09-16 16:55 | MRI ---
MRI OF BRAIN WITHOUT CONTRAST: 09/16/18 Multiplanar and multisequential imaging of brain obtained. INDICATIONS: Disorientation. FINDINGS: Ventricles have normal size and position. Minimal cortical volume loss. Moderately severe chronic ischemic white matter changes are seen in both cerebral hemispheres. There is no evidence of restricted diffusion. There is no infarct, mass or edema seen. Intracranial interna l carotid arteries and proximal cerebral arteries exhibit expected flow voids. The paranasal sinuses and mastoids are clear. IMPRESSION: Moderate to severe chronic ischemic white matter change. No acute abnormality identified. POS: BRAN
== END 2018-09-16 15:11 | disposition home or self-care (01) ==
LOC: BICMRI 15:10
PROVIDERS: ATTEND Family Medicine
DX: R41.0 Disorientation, unspecified (principal); I67.82 Cerebral ischemia
CPT/HCPCS: 70551

== ENCOUNTER 2018-12-28 10:26 | Outpatient (CLI) | payer MEDICARE ==
--- NOTE | 2018-12-28 11:49 | MMO ---
Bilateral MAMMO Bilat Screen DDI+SUPRIYA. CLINICAL HISTORY: Patient is 78 years old and is seen for screening. The patient has no family history of breast cancer. The patient has a history of other cancer at age 68. VIEWS: The views performed were: bilateral craniocaudal with tomosynthesis and bilateral mediolateral oblique with tomosynthesis. FILMS COMPARED: The present examination has been compared to prior imaging studies performed at [facility] on 04/27/2009, 10/29/2010, 03/23/2013 and 02/07/2016. MAMMOGRAM FINDINGS: There are scattered fibroglandular densities. Benign calcifications are noted bilaterally. There are no suspicious masses, suspicious calcifications, or new areas of architectural distortion. IMPRESSION: THERE IS NO MAMMOGRAPHIC EVIDENCE OF MALIGNANCY. A ROUTINE FOLLOW-UP MAMMOGRAM IN 1 YEAR IS RECOMMENDED. THE RESULTS OF THIS EXAM WERE SENT TO THE PATIENT. ACR BI-RADS Category 2 - Benign finding MAMMOGRAPHY NOTE: 1. A negative mammogram report should not delay a biopsy if a dominant of clinically suspicious mass is present. 2. Approximately 10% to 15% of breast cancers are not detected by mammography. 3. Adenosis and dense breasts may obscure an underlying neoplasm. Reported by: CHIKA WELLS MD Electonically Signed: [id number]
== END 2018-12-28 10:27 | disposition home or self-care (01) ==
LOC: BICMAMMO 10:26
PROVIDERS: ATTEND Family Medicine
DX: Z12.31 Encounter for screening mammogram for malignant neoplasm of breast (principal)
CPT/HCPCS: 77063; 77067

== ENCOUNTER 2019-04-02 15:58 | Emergency (ER) | payer MEDICARE ==
--- NOTE | 2019-04-02 16:23 | RAD ---
XR Hip Lt 2-3 View History: Pain after fall Comparison: None. Findings: Enthesopathic changes left initial tuberosity. No acute displaced fracture or malalignment. Left obturator ring is intact as well as the acetabulum. Impression: No acute displaced fracture or malalignment.
--- NOTE | 2019-04-02 19:14 | CT ---
CT Pelvis WO Con History: Fall. Pain. Comparison: Hip radiograph same day Findings: Laminectomy changes lower lumbar spine. Severe degenerative disc space disease lower lumbar spine with neural foraminal and spinal canal narrowing. 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 No SI joint widening. The obturator rings are intact. The femoral heads and femoral necks are intact. Intrapelvic soft tissues are unremarkable. Large left gluteus zaheer hematoma. Coccyx is intact. Impression: Large left gluteus zaheer muscle hematoma. No acute fracture.
== END 2019-04-02 19:30 | disposition home or self-care (01) ==
LOC: ERS 15:58
DX: S70.02XA Contusion of left hip, initial encounter (principal); M54.32 Sciatica, left side; E11.9 Type 2 diabetes mellitus without complications; I10 Essential (primary) hypertension; I48.91 Unspecified atrial fibrillation; F32.9 Major depressive disorder, single episode, unspecified; Z79.899 Other long term (current) drug therapy; Z87.891 Personal history of nicotine dependence; W19.XXXA Unspecified fall, initial encounter
CPT/HCPCS: 72192

== ENCOUNTER 2020-03-27 08:56 | Outpatient (CLI) | payer MEDICARE ==
--- NOTE | 2020-03-27 09:30 | MMO ---
Bilateral MAMMO Bilat Screen DDI+SUPRIYA. CLINICAL HISTORY: Patient is 79 years old and is seen for screening. The patient has no family history of breast cancer. The patient has a history of Skin cancer at age 68. VIEWS: The views performed were: bilateral craniocaudal with tomosynthesis and bilateral mediolateral oblique with tomosynthesis. FILMS COMPARED: The present examination has been compared to prior imaging studies performed at [facility] on 10/29/2010, 03/23/2013, 02/07/2016 and 12/28/2018. This study has been interpreted with the assistance of computer-aided detection. MAMMOGRAM FINDINGS: There are scattered fibroglandular densities. There are stable benign appearing calcifications seen in both breasts. There are also vascular calcifications. There are no suspicious masses, suspicious calcifications, or new areas of architectural distortion. IMPRESSION: THERE IS NO MAMMOGRAPHIC EVIDENCE OF MALIGNANCY. A ROUTINE FOLLOW-UP MAMMOGRAM IN 1 YEAR IS RECOMMENDED. THE RESULTS OF THIS EXAM WERE SENT TO THE PATIENT. ACR BI-RADS Category 2 - Benign finding MAMMOGRAPHY NOTE: 1. A negative mammogram report should not delay a biopsy if a dominant of clinically suspicious mass is present. 2. Approximately 10% to 15% of breast cancers are not detected by mammography. 3. Adenosis and dense breasts may obscure an underlying neoplasm. Reported by: TABITHA HYDE MD Electonically Signed: [id number]
== END 2020-03-27 08:57 | disposition home or self-care (01) ==
LOC: BICMAMMO 08:56
PROVIDERS: ATTEND Family Medicine
DX: Z12.31 Encounter for screening mammogram for malignant neoplasm of breast (principal); Z85.828 Personal history of other malignant neoplasm of skin
CPT/HCPCS: 77063; 77067

== ENCOUNTER 2020-06-07 05:57 | Day surgery (SDC) | payer MEDICARE ==
[2020-06-06 11:49] VITALS: BMI 27.7
[2020-06-07] MEDS ORDERED: PROPOFOL 20 ML ONE (07:18)
[2020-06-07] MEDS ORDERED: Fentanyl 100 MCG/2 ML VIAL ONE (07:26)
--- NOTE | 2020-06-07 09:11 | DIS ---
DATE OF ADMISSION: 06/07/2020 DATE OF DISCHARGE: 06/07/2020 DATE OF OUTPATIENT PROCEDURE: 06/07/2020. This is a 80-year-old female, who was seen in the office on 06/05/2020, was found to be in atrial flutter. She had a rapid ventricular response, heart rates in the 130s to 150s. She had previously undergone an ablation of atrial fibrillation in August of 2018. When she returned to the office at this time for a routine followup, she said she had not been feeling well and noted that her heart was beating a little bit faster than usual, and she was found to be in atrial flutter with rapid ventricular response. She was advised to undergo a transesophageal echocardiogram and possible cardioversion. She was taken to the recovery area this morning, where she underwent the procedure without difficulties or complications. The echocardiogram showed a normal ejection fraction. No evidence of left atrial appendage thrombus. The full report has already been dictated. She then underwent electrocardioversion using one attempt at 50 joules and was successfully converted back to sinus rhythm without any difficulties or complications. DISCHARGE MEDICATIONS: Her discharge medications will be the same as her admitting medications. She was started on Multaq prior to the procedure when she was in the office that she is on Multaq for at least 2 days. Discharge medications will include: 1. Amitriptyline 200 mg q.p.m. 2. Amlodipine 5 mg, which was increased up to 10 mg if necessary for blood pressure control. 3. Eliquis 5 mg b.i.d. 4. Ascorbic acid 500 mg q. day. 5. Atenolol 50 mg q. day. 6. Vitamin D3 q. day. 7. [place]-3 Softgel tablets 2 tablets once a day. 8. Zocor 20 mg once a day. 9. Vitamin E. 10. Zinc. She takes vitamin B12. She also was taking Multaq 400 mg b.i.d., Trulicity 1.5 mg subcu injection every 7 days, fenofibrate 160 mg once a day, hydrochlorothiazide 25 mg tablets once a day, Vascepa 2 g tablets she was taken 2 g twice a day. She was on Levemir FlexPen 20 units twice a day, metformin b.i.d. She will continue these medications. I will see her back in the office in 1 week to ensure that she remains in sinus rhythm. If not, she will be referred to the panelboard tank pumper for most likely ablation of the atrial flutter. HOSPITAL COURSE: As noted, she did undergo a transesophageal echocardiogram this morning, which did not show any evidence of left atrial appendage thrombus. She had mild to moderate mitral and tricuspid valve regurgitation, trace aortic valve regurgitation. Normal left ventricular systolic function. The left atrium did not appear to be significantly dilated. She underwent electrocardioversion using 50 joules and was successfully converted back to sinus rhythm. No difficulties or complications were encountered. Job ID: [id number] MTDD
--- NOTE | 2020-06-07 17:08 | EKG ---
Test Reason : POST CARDIOVERSION Blood Pressure : / mmHG Vent. Rate : 066 BPM Atrial Rate : 066 BPM P-R Int : 222 ms QRS Dur : 112 ms QT Int : 436 ms P-R-T Axes : 055 -39 033 degrees QTc Int : 457 ms Sinus rhythm with 1st degree A-V block Left axis deviation Abnormal ECG No previous ECGs available Confirmed by DR. Cee HERBERT (3) on 06/07/2020 5:07:53 PM Referred By: STEPAN Confirmed By:DR. Cee HERBERT
--- NOTE | 2020-06-21 14:23 | CCLSPC ---
INDICATION FOR PROCEDURE: A 80-year-old female, who was found to have atrial flutter with a rapid ventricular response. She was advised to undergo transesophageal cardiogram as well as an electrocardioversion. She had previously undergone ablation for atrial fibrillation, but returned to the office on 06/05/2020 with rapid rate, which was felt to be a supraventricular tachycardia of some sort. She was given 6 mg IV adenosine in the office. It was noted that she had underlying atrial flutter, but then returned back to her sinus tachycardia. She did not convert from the atrial flutter but did have a slow enough ventricular rate that we could determine this was underlying atrial flutter, and she was advised to undergo a cardioversion as well as a KOLBY. She has been on Eliquis for more than 1 year after her ablation. This morning, she was taken to the recovery area where she underwent short-acting propofol. The transesophageal probe was easily passed down the distal esophagus. IMPRESSIONS: Are as follows: 1. Normal left ventricular size and function. Ejection fraction is estimated to be 50% to 60%. 2. There was no evidence of left atrial or left atrial appendage thrombus. 3. Left atrium did not appear to be significantly dilated and appeared to be less than 4.0 cm in diameter. 4. There is evidence of [id number] mitral valve regurgitation, [id number] tricuspid valve regurgitation, trace aortic valve regurgitation, and no evidence of left atrial or left atrial appendage thrombus. She tolerated the procedure well without difficulties or complications. Job ID: [id number]
--- NOTE | 2020-06-21 14:24 | CCLSPC ---
INDICATION FOR PROCEDURE: A 80-year-old female with atrial flutter. She earlier this morning underwent a transesophageal echocardiogram and was advised to undergo an electrical cardioversion of the atrial flutter back to normal sinus rhythm. After the transesophageal echocardiogram did not show any evidence of left atrial or left atrial appendage thrombus, we proceeded with an electrocardioversion using 1 attempt at 50 joules. The patient was successfully converted back to a normal sinus rhythm with a heart rate of about 70 beats per minute. There were no difficulties or complications encountered. Job ID: [id number]
== END 2020-06-07 08:45 | disposition home or self-care (01) ==
LOC: CCL 05:57
PROVIDERS: ATTEND Internal Medicine Cardiovascular Disease
PROC: B24BZZ4 Ultrasonography of Heart with Aorta, Transesophageal (ICD-10-PCS; principal; 2020-06-07)
PROC: 5A2204Z Restoration of Cardiac Rhythm, Single (ICD-10-PCS; 2020-06-07)
DX: I48.92 Unspecified atrial flutter (principal); I08.3 Combined rheumatic disorders of mitral, aortic and tricuspid valves; I48.0 Paroxysmal atrial fibrillation; I47.1 Supraventricular tachycardia; E78.2 Mixed hyperlipidemia; I12.9 Hypertensive chronic kidney disease with stage 1 through stage 4 chronic kidney disease, or unspecified chronic kidney disease; E11.22 Type 2 diabetes mellitus with diabetic chronic kidney disease; N18.9 Chronic kidney disease, unspecified; E78.00 Pure hypercholesterolemia, unspecified; M10.9 Gout, unspecified; Z87.891 Personal history of nicotine dependence; Z79.01 Long term (current) use of anticoagulants; Z79.4 Long term (current) use of insulin; Z79.899 Other long term (current) drug therapy; Z88.1 Allergy status to other antibiotic agents; Z88.8 Allergy status to other drugs, medicaments and biological substances
CPT/HCPCS: 36416; 92960; 93005; 93010; 93312; J2704; J3010

== ENCOUNTER 2021-01-16 16:29 | Inpatient (IN) | payer MEDICARE ==
[2021-01-16 17:09] LABS: #Eosinphils 0.1 thou/uL (0.0-0.7); #Lymphocytes 4.9 thou/uL (1.20-3.40); #Monocytes 0.8 thou/uL (0.11-0.59); #Neutrophils 5.9 thou/uL (1.40-6.50); %Basophils 0.1 % (0.0-1.0); %Eosinophils 0.9 % (0.0-10.0); %Lymphocytes 41.6 % (21.0-51.0); %Neutrophils 50.5 % (42.0-75.0); Hemoglobin 15.3 g/dL (12.0-16.0); Mean Corpuscular HGB CONC 33.4 g/dL (32.0-36.0); Mean Corpuscular Hemoglobin 30.3 pg (27.0-31.0); Mean Corpuscular Volume 90.8 fL (78.0-98.0); Mean Platelet Volume 8.2 fL (7.4-10.4); Platelet Count 330 thou/uL (130-400); RBC Distribution Width 10.8 % (11.5-14.5); Red Blood Cell (RBC) Count 5.04 mill/uL (4.20-5.40); White Blood Cell (WBC) Count 11.7 thou/uL (4.8-10.8)
[2021-01-16] MEDS ORDERED: Diltiazem 125 MG/25 ML ONE ×2 (17:14→17:16)
[2021-01-16 17:32] LABS: ALT (SGPT) 18 U/L (8-55); AST (SGOT) 22 U/L (5-34); Albumin 4.3 g/dL (3.4-4.8); Alkaline Phosphatase 39 U/L (40-110); Anion Gap 14 mmol/L (10-20); BUN (Urea Nitrogen) 27 mg/dL (9.8-20.1); Bilirubin, Total 0.4 mg/dL (0.2-1.2); Calc. Creatinine Clearance 0 mL/min (70-130); Calcium 10.7 mg/dL (7.8-10.44); Carbon Dioxide 28 mmol/L (23-31); Chloride 101 mmol/L (98-107); Globulin 3.3 g/dL (2.4-3.5); Glucose 137 mg/dL (83-110); Potassium 4.2 mmol/L (3.5-5.1); Protein, Total 7.6 g/dL (5.8-8.1); Sodium 139 mmol/L (136-145)
[2021-01-16] MEDS ORDERED: Ondansetron PF 4 MG/2 ML Vial IVP PRN (20:19)
[2021-01-16] MEDS ORDERED: Acetaminophen 325 MG TAB PO PRN (20:19)
[2021-01-16] MEDS ORDERED: HYDROcodone/Acetaminophen 5/325 mg Tablet PO PRN (20:19)
[2021-01-16] MEDS ORDERED: Morphine 2 MG/ML VIAL SLOW IVP PRN (20:22)
[2021-01-16] MEDS ORDERED: HumaLOG 300 UNITS/3 ML VIAL SC PRN (20:22)
[2021-01-16] MEDS ORDERED: hydrALAZINE 20 MG/ML VIAL SLOW IVP PRN (20:22)
[2021-01-16] MEDS ORDERED: Amiodarone 450 MG in Dextrose 5% in Water 250 ML IVPB SCH (20:30)
[2021-01-16] MEDS ORDERED: Amiodarone 150 MG, Admixture Fee 1 EACH in Dextrose 5% in Water 100 ML IVPB SCH (21:15)
[2021-01-16 21:39] LABS: Magnesium 1.4 mg/dL (1.6-2.6)
[2021-01-16 23:54] LABS: SARS-CoV-2 NAA Rapid Test Not Detected (NotDetected)
[2021-01-17] MEDS: Apixaban 5 MG TAB PO SCH ×3 (00:14→20:24)
[2021-01-17] MEDS: Atorvastatin Calcium 10 MG TAB PO SCH ×2 (00:14→20:24)
[2021-01-17] MEDS: Amitriptyline HCl 100 MG TAB PO SCH ×2 (00:14→20:24)
[2021-01-17] MEDS ORDERED: HumaLOG 300 UNITS/3 ML VIAL ONE (00:38)
[2021-01-17 04:43] LABS: Hemoglobin 13.9 g/dL (12.0-16.0); Lymphocytes 39 % (21-51); MDiff Complete? YES; Mean Corpuscular Volume 90.9 fL (78.0-98.0); Monocytes 4 % (0-10); Neutrophil 52 % (42-75); Platelet Count 271 thou/uL (130-400); Platelet Morphology Comment Appears Adequate; RBC Distribution Width 10.9 % (11.5-14.5); RBC Morphology Normal; Reactive Lymphocytes 5 % (0-10); Red Blood Cell (RBC) Count 4.65 mill/uL (4.20-5.40); White Blood Cell (WBC) Count 8.7 thou/uL (4.8-10.8)
[2021-01-17 04:55] LABS: ALT (SGPT) 15 U/L (8-55); AST (SGOT) 17 U/L (5-34); Albumin 3.6 g/dL (3.4-4.8); Alkaline Phosphatase 33 U/L (40-110); Anion Gap 13 mmol/L (10-20); BUN (Urea Nitrogen) 23 mg/dL (9.8-20.1); Bilirubin, Total 0.4 mg/dL (0.2-1.2); Calc. Creatinine Clearance 64 mL/min (70-130); Calcium 9.9 mg/dL (7.8-10.44); Carbon Dioxide 27 mmol/L (23-31); Chloride 102 mmol/L (98-107); Globulin 2.9 g/dL (2.4-3.5); Glucose 186 mg/dL (83-110); Potassium 3.5 mmol/L (3.5-5.1); Protein, Total 6.5 g/dL (5.8-8.1); Sodium 138 mmol/L (136-145)
[2021-01-17] MEDS: Fenofibrate Nanocrystallized 145 MG TAB PO SCH (10:33)
[2021-01-17] MEDS ORDERED: Atenolol 50 MG TAB PO SCH (11:45)
[2021-01-17] MEDS ORDERED: Amlodipine 10 MG TAB PO SCH (11:45)
[2021-01-17] MEDS ORDERED: Magnesium 2 GM/50 ML 2 GM in Premix Bag 1 BAG IVPB SCH (12:30)
[2021-01-17] MEDS ORDERED: Digoxin 0.5 MG/2 ML AMP SLOW IVP SCH (12:30)
[2021-01-17 13:32] VITALS: BMI 26.6
[2021-01-17] MEDS: metFORMIN 500 MG TAB PO SCH (17:38)
[2021-01-18 05:31] LABS: Anion Gap 12 mmol/L (10-20); BUN (Urea Nitrogen) 20 mg/dL (9.8-20.1); Calc. Creatinine Clearance 64 mL/min (70-130); Calcium 9.3 mg/dL (7.8-10.44); Carbon Dioxide 26 mmol/L (23-31); Chloride 103 mmol/L (98-107); Glucose 168 mg/dL (83-110); Magnesium 1.7 mg/dL (1.6-2.6); Potassium 3.6 mmol/L (3.5-5.1); Sodium 137 mmol/L (136-145)
[2021-01-18] MEDS ORDERED: PROPOFOL 20 ML ONE (08:12)
[2021-01-18] MEDS: Amlodipine 10 MG TAB PO SCH (09:30)
[2021-01-18] MEDS: Amiodarone 200 MG TAB PO SCH ×3 (09:30→20:17)
[2021-01-18] MEDS: Atenolol 50 MG TAB PO SCH (09:30)
[2021-01-18] MEDS: Fenofibrate Nanocrystallized 145 MG TAB PO SCH (09:31)
[2021-01-18] MEDS: Apixaban 5 MG TAB PO SCH ×2 (09:31→20:17)
[2021-01-18] MEDS: metFORMIN 500 MG TAB PO SCH ×2 (09:31→16:46)
[2021-01-18] MEDS: Atorvastatin Calcium 10 MG TAB PO SCH (20:17)
[2021-01-18] MEDS: Amitriptyline HCl 100 MG TAB PO SCH (20:17)
[2021-01-19] MEDS: Fenofibrate Nanocrystallized 145 MG TAB PO SCH (08:20)
[2021-01-19] MEDS: Amlodipine 10 MG TAB PO SCH (08:20)
[2021-01-19] MEDS: Atenolol 50 MG TAB PO SCH (08:20)
[2021-01-19] MEDS: Amiodarone 200 MG TAB PO SCH ×2 (08:21→16:27)
[2021-01-19] MEDS: metFORMIN 500 MG TAB PO SCH ×2 (08:21→16:27)
[2021-01-19] MEDS: Apixaban 5 MG TAB PO SCH (08:21)
[2021-01-19 16:11] VITALS: BP 148/73; TEMP 97.6
== END 2021-01-19 17:35 | disposition home or self-care (01) | DRG 309 ==
LOC: ERS 16:29 → ERHOLD 18:33 → 2NO 01-17 12:37
PROVIDERS: ADMIT Family Medicine; ATTEND Family Medicine
PROC: 5A2204Z Restoration of Cardiac Rhythm, Single (ICD-10-PCS; principal; 2021-01-18)
DX: I48.4 Atypical atrial flutter (principal); I16.9 Hypertensive crisis, unspecified; I48.19 Other persistent atrial fibrillation; Z20.822 Contact with and (suspected) exposure to COVID-19; I10 Essential (primary) hypertension; E11.9 Type 2 diabetes mellitus without complications; E78.5 Hyperlipidemia, unspecified; F32.9 Major depressive disorder, single episode, unspecified; E83.42 Hypomagnesemia; I48.0 Paroxysmal atrial fibrillation; I35.0 Nonrheumatic aortic (valve) stenosis; Z98.51 Tubal ligation status; Z90.49 Acquired absence of other specified parts of digestive tract; Z88.1 Allergy status to other antibiotic agents; Z88.8 Allergy status to other drugs, medicaments and biological substances; Z79.01 Long term (current) use of anticoagulants; Z79.4 Long term (current) use of insulin; Z79.899 Other long term (current) drug therapy
CPT/HCPCS: 36415; 36416; 71045; 80048; 80053; 83735; 83880; 84443; 84484; 85007; 85025; 85027; 92960; 93005; 93010; 94760; 96365; 96366; J0282; J1160; J1815; J2704; J3475; J7070; U0002

== ENCOUNTER 2021-02-11 07:23 | Day surgery (SDC) | payer MEDICARE ==
[2021-02-08 12:15] VITALS: BMI 25.9
[2021-02-11] MEDS ORDERED: Heparin 10,000 UNITS/ 10 ML VIAL ONE (09:17)
[2021-02-11] MEDS ORDERED: Heparin 25,000 units/D5W 500 ML ONE (09:17)
[2021-02-11] MEDS ORDERED: Isoproterenol 0.2 MG/1 ML AMP ONE (09:17)
[2021-02-11] MEDS ORDERED: Fentanyl 100 MCG/2 ML VIAL ONE ×2 (09:25→12:41)
[2021-02-11] MEDS ORDERED: diphenhydrAMINE 50 MG/ML VIAL ONE (09:43)
[2021-02-11] MEDS ORDERED: Rocuronium Bromide 10 MG/ML (10ML VIAL) ONE (09:43)
[2021-02-11] MEDS ORDERED: PHENYLEPHRINE-NS 100 MCG/ML 10 ML SYRINGE ONE (09:43)
[2021-02-11] MEDS ORDERED: Dexamethasone 20 MG/5 ML VIAL ONE (09:43)
[2021-02-11] MEDS ORDERED: Lidocaine 1% PF 5 ML VIAL ONE (09:43)
[2021-02-11] MEDS ORDERED: Ondansetron PF 4 MG/2 ML Vial ONE (09:43)
[2021-02-11] MEDS ORDERED: PROPOFOL 200 MG/20 ML VIAL ONE (09:43)
[2021-02-11] MEDS ORDERED: Hydrocortisone Sod Succ/PF 100 mg/2 ml Vial ONE (12:50)
[2021-02-11] MEDS ORDERED: SUGAMMADEX SODIUM 200 MG/2 ML VIAL ONE (12:50)
[2021-02-11] MEDS ORDERED: Propofol 500 MG/50 ML VIAL ONE (12:51)
[2021-02-11] MEDS ORDERED: Protamine Sulfate 50 MG/5 ML VIAL ONE (13:44)
[2021-02-11] MEDS ORDERED: Potassium Chloride 20 MEQ TAB PO PRN (15:44)
[2021-02-11] MEDS ORDERED: Furosemide 40 MG TAB PO PRN (15:44)
[2021-02-11] MEDS ORDERED: Sucralfate 1 GM TAB PO SCH (17:00)
== END 2021-02-11 18:07 | disposition home or self-care (01) ==
LOC: CCL 07:23
PROVIDERS: ATTEND Internal Medicine Cardiovascular Disease
PROC: 02583ZZ Destruction of Conduction Mechanism, Percutaneous Approach (ICD-10-PCS; principal; 2021-02-11)
PROC: 02K83ZZ Map Conduction Mechanism, Percutaneous Approach (ICD-10-PCS; 2021-02-11)
PROC: 4A023FZ Measurement of Cardiac Rhythm, Percutaneous Approach (ICD-10-PCS; 2021-02-11)
PROC: 4A0234Z Measurement of Cardiac Electrical Activity, Percutaneous Approach (ICD-10-PCS; 2021-02-11)
PROC: B244ZZ3 Ultrasonography of Right Heart, Intravascular (ICD-10-PCS; 2021-02-11)
DX: I48.19 Other persistent atrial fibrillation (principal); I48.92 Unspecified atrial flutter; I08.3 Combined rheumatic disorders of mitral, aortic and tricuspid valves; I10 Essential (primary) hypertension; E78.5 Hyperlipidemia, unspecified; E11.9 Type 2 diabetes mellitus without complications; G89.29 Other chronic pain; M54.9 Dorsalgia, unspecified; M10.9 Gout, unspecified; Z87.891 Personal history of nicotine dependence; Z79.01 Long term (current) use of anticoagulants; Z79.4 Long term (current) use of insulin; Z79.84 Long term (current) use of oral hypoglycemic drugs; Z79.899 Other long term (current) drug therapy; Z88.1 Allergy status to other antibiotic agents; Z88.8 Allergy status to other drugs, medicaments and biological substances; Z98.890 Other specified postprocedural states
CPT/HCPCS: 85347; 93005; 93613; 93622; 93623; 93655; 93656; 93657; 93662; C1732; C1759; C1884; J1100; J1200; J1644; J1720; J2405; J2704; J2720; J3010

== ENCOUNTER 2021-08-31 23:16 | Inpatient (IN) | payer MEDICARE ==
[2021-09-01 00:04] LABS: #Eosinphils 0.1 thou/uL (0.0-0.7); #Lymphocytes 2.6 thou/uL (1.20-3.40); #Monocytes 0.8 thou/uL (0.11-0.59); #Neutrophils 4.6 thou/uL (1.40-6.50); %Basophils 0.3 % (0.0-1.0); %Lymphocytes 32.3 % (21.0-51.0); %Monocytes 10.1 % (0.0-10.0); %Neutrophils 56.3 % (42.0-75.0); Hemoglobin 14.6 g/dL (12.0-16.0); Mean Corpuscular Hemoglobin 31.2 pg (27.0-31.0); Mean Corpuscular Volume 91.9 fL (78.0-98.0); Mean Platelet Volume 7.9 fL (7.4-10.4); Platelet Count 306 thou/uL (130-400); RBC Distribution Width 10.9 % (11.5-14.5); Red Blood Cell (RBC) Count 4.66 mill/uL (4.20-5.40); White Blood Cell (WBC) Count 8.2 thou/uL (4.8-10.8)
[2021-09-01 00:10] LABS: INR-International Normal Ratio 1.2; PTT 30.9 sec (22.9-36.1); Prothrombin Time 15.5 sec (12.0-14.7)
[2021-09-01 00:13] LABS: ALT (SGPT) 13 U/L (8-55); AST (SGOT) 21 U/L (5-34); Albumin 4.2 g/dL (3.4-4.8); Alkaline Phosphatase 33 U/L (40-110); Anion Gap 14 mmol/L (10-20); BUN (Urea Nitrogen) 23 mg/dL (9.8-20.1); Bilirubin, Total 0.4 mg/dL (0.2-1.2); Calc. Creatinine Clearance 0 mL/min (70-130); Calcium 10.4 mg/dL (7.8-10.44); Carbon Dioxide 27 mmol/L (23-31); Chloride 102 mmol/L (98-107); Glucose 149 mg/dL (83-110); Magnesium 1.7 mg/dL (1.6-2.6); Potassium 3.8 mmol/L (3.5-5.1); Protein, Total 7.2 g/dL (5.8-8.1); Sodium 139 mmol/L (136-145)
[2021-09-01] MEDS ORDERED: Ondansetron ODT 4 MG TAB PO PRN (02:27)
[2021-09-01] MEDS ORDERED: Acetaminophen 325 MG TAB PO PRN (02:27)
[2021-09-01] MEDS ORDERED: Dextrose 50% Abboject 50 ML SYRINGE SLOW IVP PRN (02:28)
[2021-09-01] MEDS ORDERED: HumaLOG 300 UNITS/3 ML VIAL SC PRN ×2 (02:28)
[2021-09-01] MEDS ORDERED: Dextrose 5% in Water 1,000 ML IV PRN (02:28)
[2021-09-01] MEDS ORDERED: Electrolyte Replacement Protocol 1 EACH FS SCH (02:30)
[2021-09-01] MEDS ORDERED: Magnesium 2 GM/50 ML(in water) 2 GM in Premix Bag 1 BAG IVPB SCH (04:00)
[2021-09-01 05:21] LABS: #Eosinphils 0.1 thou/uL (0.0-0.7); #Monocytes 0.6 thou/uL (0.11-0.59); #Neutrophils 4.8 thou/uL (1.40-6.50); %Basophils 0.2 % (0.0-1.0); %Eosinophils 0.8 % (0.0-10.0); %Lymphocytes 26.4 % (21.0-51.0); %Monocytes 8.4 % (0.0-10.0); %Neutrophils 64.2 % (42.0-75.0); Hemoglobin 12.7 g/dL (12.0-16.0); Mean Corpuscular HGB CONC 34.3 g/dL (32.0-36.0); Mean Corpuscular Hemoglobin 31.6 pg (27.0-31.0); Mean Platelet Volume 7.7 fL (7.4-10.4); Platelet Count 234 thou/uL (130-400); RBC Distribution Width 10.7 % (11.5-14.5); Red Blood Cell (RBC) Count 4.03 mill/uL (4.20-5.40); White Blood Cell (WBC) Count 7.5 thou/uL (4.8-10.8)
[2021-09-01 05:45] LABS: Anion Gap 13 mmol/L (10-20); BUN (Urea Nitrogen) 23 mg/dL (9.8-20.1); Calc. Creatinine Clearance 0 mL/min (70-130); Calcium 9.7 mg/dL (7.8-10.44); Carbon Dioxide 25 mmol/L (23-31); Chloride 104 mmol/L (98-107); Glucose 157 mg/dL (83-110); Magnesium 1.6 mg/dL (1.6-2.6); Potassium 3.8 mmol/L (3.5-5.1); Sodium 138 mmol/L (136-145)
[2021-09-01 05:50] LABS: Troponin I 0.119 ng/mL (< 0.028)
[2021-09-01 07:28] VITALS: BMI 26.3
[2021-09-01] MEDS: Fenofibrate Nanocrystallized 145 MG TAB PO SCH (07:32)
[2021-09-01] MEDS: Icosapent Ethyl 1 GM CAPSULE PO SCH ×2 (07:32→21:33)
[2021-09-01] MEDS: Amlodipine 10 MG TAB PO SCH (07:32)
[2021-09-01] MEDS: Apixaban 5 MG TAB PO SCH ×2 (07:33→21:32)
[2021-09-01 08:32] LABS: Troponin I 0.125 ng/mL (< 0.028)
[2021-09-01] MEDS ORDERED: Amlodipine 10 MG TAB PO SCH (09:00)
[2021-09-01] MEDS: metFORMIN 500 MG TAB PO SCH ×3 (09:35→17:01)
[2021-09-01] MEDS: Insulin Glargine 30 UNITS/0.3 ML VIAL SC SCH ×2 (09:35→21:33)
[2021-09-01] MEDS ORDERED: Electrolyte Replacement Protocol FS PRN (13:30)
[2021-09-01] MEDS ORDERED: (Dulaglutide [Trulicity] 1.5 MG/0.5 ML Pen.Injctr) SC SCH (15:00)
[2021-09-01 16:19] LABS: SARS-CoV-2 PCR by NAA Not Detected (NotDetected)
[2021-09-01] MEDS: Atorvastatin Calcium 10 MG TAB PO SCH (21:33)
[2021-09-02 04:50] LABS: #Eosinphils 0.1 thou/uL (0.0-0.7); #Lymphocytes 1.8 thou/uL (1.20-3.40); #Monocytes 0.6 thou/uL (0.11-0.59); #Neutrophils 2.8 thou/uL (1.40-6.50); %Basophils 0.6 % (0.0-1.0); %Lymphocytes 33.3 % (21.0-51.0); %Monocytes 11.5 % (0.0-10.0); %Neutrophils 52.5 % (42.0-75.0); Hemoglobin 12.6 g/dL (12.0-16.0); Mean Corpuscular Hemoglobin 32.5 pg (27.0-31.0); Mean Corpuscular Volume 92.9 fL (78.0-98.0); Mean Platelet Volume 7.8 fL (7.4-10.4); Platelet Count 217 thou/uL (130-400); RBC Distribution Width 10.6 % (11.5-14.5); Red Blood Cell (RBC) Count 3.87 mill/uL (4.20-5.40); White Blood Cell (WBC) Count 5.4 thou/uL (4.8-10.8)
[2021-09-02 05:11] LABS: Anion Gap 10 mmol/L (10-20); BUN (Urea Nitrogen) 19 mg/dL (9.8-20.1); Calc. Creatinine Clearance 68 mL/min (70-130); Calcium 9.4 mg/dL (7.8-10.44); Carbon Dioxide 28 mmol/L (23-31); Chloride 104 mmol/L (98-107); Glucose 128 mg/dL (83-110); Magnesium 1.9 mg/dL (1.6-2.6); Sodium 138 mmol/L (136-145)
[2021-09-02] MEDS ORDERED: Magnesium 2 GM/50 ML(in water) 2 GM in Premix Bag 1 BAG IVPB SCH (06:00)
[2021-09-02] MEDS: Amlodipine 10 MG TAB PO SCH (10:03)
[2021-09-02] MEDS: Fenofibrate Nanocrystallized 145 MG TAB PO SCH (10:03)
[2021-09-02] MEDS: Icosapent Ethyl 1 GM CAPSULE PO SCH ×2 (10:03→20:01)
[2021-09-02] MEDS: Insulin Glargine 30 UNITS/0.3 ML VIAL SC SCH ×2 (10:03→20:54)
[2021-09-02] MEDS: metFORMIN 500 MG TAB PO SCH ×2 (10:03→18:04)
[2021-09-02] MEDS: Atorvastatin Calcium 10 MG TAB PO SCH (20:01)
[2021-09-03 05:40] LABS: Anion Gap 12 mmol/L (10-20); BUN (Urea Nitrogen) 16 mg/dL (9.8-20.1); Calc. Creatinine Clearance 72 mL/min (70-130); Calcium 9.2 mg/dL (7.8-10.44); Carbon Dioxide 24 mmol/L (23-31); Chloride 106 mmol/L (98-107); Glucose 91 mg/dL (83-110); Potassium 3.5 mmol/L (3.5-5.1); Sodium 138 mmol/L (136-145)
[2021-09-03] MEDS ORDERED: Potassium Chloride 20 MEQ TAB PO SCH (06:30)
[2021-09-03] MEDS ORDERED: CEFAZOLIN 1 GM VIAL ONE (06:35)
[2021-09-03] MEDS ORDERED: Gentamicin 80 MG/2 ML VIAL ONE (06:35)
[2021-09-03] MEDS ORDERED: ceFAZolin 2 GM/Dextrose 50 ML IVPB ONE (06:35)
[2021-09-03] MEDS ORDERED: Midazolam HCl 2 mg/2 ml Vial ONE (06:37)
[2021-09-03] MEDS ORDERED: Lidocaine 1% (PF) 30 ML VIAL ONE (06:37)
[2021-09-03] MEDS: Apixaban 5 MG TAB PO SCH (10:13)
[2021-09-03] MEDS: Icosapent Ethyl 1 GM CAPSULE PO SCH (10:37)
[2021-09-03] MEDS: Fenofibrate Nanocrystallized 145 MG TAB PO SCH (10:37)
[2021-09-03] MEDS: Amlodipine 10 MG TAB PO SCH (10:37)
[2021-09-03] MEDS: metFORMIN 500 MG TAB PO SCH (10:37)
[2021-09-03 11:24] VITALS: TEMP 97.4
[2021-09-03] MEDS ORDERED: Iopamidol 300 61% 50 ML VIAL FS ONE (13:57)
[2021-09-03 16:20] VITALS: BP 139/63
== END 2021-09-03 18:00 | disposition home or self-care (01) | DRG 243 ==
LOC: ERS 23:16 → 2SW 09-01 01:26 → OBSVTOIN 09-02 14:36
PROVIDERS: ADMIT Student in an Organized Health Care Education/Training Program; ATTEND Internal Medicine
PROC: 0JH606Z Insertion of Pacemaker, Dual Chamber into Chest Subcutaneous Tissue and Fascia, Open Approach (ICD-10-PCS; principal; 2021-09-03)
PROC: 02H63JZ Insertion of Pacemaker Lead into Right Atrium, Percutaneous Approach (ICD-10-PCS; 2021-09-03)
PROC: 02HK3JZ Insertion of Pacemaker Lead into Right Ventricle, Percutaneous Approach (ICD-10-PCS; 2021-09-03)
PROC: B5171ZZ Fluoroscopy of Left Subclavian Vein using Low Osmolar Contrast (ICD-10-PCS; 2021-09-03)
DX: I49.5 Sick sinus syndrome (principal); I48.92 Unspecified atrial flutter; I48.0 Paroxysmal atrial fibrillation; I44.4 Left anterior fascicular block; I10 Essential (primary) hypertension; E78.5 Hyperlipidemia, unspecified; I25.10 Atherosclerotic heart disease of native coronary artery without angina pectoris; F32.A Depression, unspecified; E11.65 Type 2 diabetes mellitus with hyperglycemia; E83.42 Hypomagnesemia; I08.3 Combined rheumatic disorders of mitral, aortic and tricuspid valves; I25.2 Old myocardial infarction; Z20.822 Contact with and (suspected) exposure to COVID-19; Z79.01 Long term (current) use of anticoagulants; Z79.899 Other long term (current) drug therapy; Z79.84 Long term (current) use of oral hypoglycemic drugs; Z90.710 Acquired absence of both cervix and uterus; Z98.890 Other specified postprocedural states; Z88.8 Allergy status to other drugs, medicaments and biological substances; Z91.09 Other allergy status, other than to drugs and biological substances; Z90.49 Acquired absence of other specified parts of digestive tract; Z98.891 History of uterine scar from previous surgery; Z82.49 Family history of ischemic heart disease and other diseases of the circulatory system
CPT/HCPCS: 33208; 36415; 36416; 71045; 80048; 80053; 82553; 83735; 83880; 84443; 84484; 85025; 85610; 85730; 93005; 93010; 93798; 96365; 96367; 96376; 99152; 99153; C1785; C1898; G0378; J0690; J1580; J1815; J2001; J2250; J3475; Q9967; U0003; U0005

== ENCOUNTER 2021-10-09 11:06 | Outpatient (CLI) | payer MEDICARE ==
[2021-02-06 13:40] LABS: Hemoglobin 12.6 g/dL (12.0-15.5); Mean Corpuscular HGB CONC 33.4 g/dL (32.0-36.0); Mean Corpuscular Hemoglobin 30.6 pg (27.0-33.0); Mean Corpuscular Volume 91.5 fl (81.6-98.3); Mean Platelet Volume 10.4 fl (7.4-10.4); Platelet Count 274 10x3/uL (150-450); RBC Distribution Width 11.6 % (11.5-14.5); Red Blood Cell (RBC) Count 4.12 10x6/uL (3.90-5.03); White Blood Cell (WBC) Count 6.5 10x3/uL (3.5-10.5)
[2021-02-06 13:59] LABS: Anion Gap 15 mmol/L (10-20); BUN (Urea Nitrogen) 23 mg/dL (9.8-20.1); Calc. Creatinine Clearance 0 mL/min (70-130); Calcium 10.9 mg/dL (7.8-10.44); Carbon Dioxide 26 mmol/L (23-31); Chloride 105 mmol/L (98-107); Glucose 82 mg/dL (83-110); Potassium 4.6 mmol/L (3.5-5.1); Sodium 141 mmol/L (136-145)
[2021-02-06 14:18] LABS: INR-International Normal Ratio 1.1; PTT 23.6 sec (22.0-33.0); Prothrombin Time 11.5 sec (9.5-12.1)
[2021-02-06 19:55] LABS: SARS-CoV-2 PCR by NAA Not Detected (NotDetected)
[2021-10-09 20:36] LABS: SARS-CoV-2 PCR by NAA Not Detected (NotDetected)
== END 2021-10-09 11:07 | disposition home or self-care (01) ==
LOC: LABBT 11:06
PROVIDERS: ATTEND Internal Medicine Cardiovascular Disease
DX: Z01.818 Encounter for other preprocedural examination (principal); I47.1 Supraventricular tachycardia; Z20.822 Contact with and (suspected) exposure to COVID-19
CPT/HCPCS: 80048; 85027; 85610; 85730; 93005; U0003 ×2; U0005 ×2; 93010

== ENCOUNTER 2021-10-14 06:03 | Day surgery (SDC) | payer MEDICARE ==
[2021-10-11 10:50] VITALS: BMI 25.8
[2021-10-14] MEDS ORDERED: PROPOFOL 0 ML ONE (07:16)
== END 2021-10-14 08:02 | disposition home or self-care (01) ==
LOC: SDC 06:03
PROVIDERS: ATTEND Internal Medicine Cardiovascular Disease
DX: I48.0 Paroxysmal atrial fibrillation (principal); I47.1 Supraventricular tachycardia; I48.3 Typical atrial flutter; I10 Essential (primary) hypertension; E78.2 Mixed hyperlipidemia; E11.9 Type 2 diabetes mellitus without complications; G89.29 Other chronic pain; M54.9 Dorsalgia, unspecified; M10.9 Gout, unspecified; Z53.8 Procedure and treatment not carried out for other reasons; Z87.891 Personal history of nicotine dependence; Z79.01 Long term (current) use of anticoagulants; Z79.4 Long term (current) use of insulin; Z79.84 Long term (current) use of oral hypoglycemic drugs; Z79.899 Other long term (current) drug therapy; Z88.1 Allergy status to other antibiotic agents; Z88.8 Allergy status to other drugs, medicaments and biological substances; Z95.0 Presence of cardiac pacemaker
CPT/HCPCS: J2704

== ENCOUNTER 2021-11-03 11:10 | Observation (INO) | payer MEDICARE ==
[2021-11-03 12:01] LABS: #Eosinphils 0.1 thou/uL (0.0-0.7); #Lymphocytes 2.3 thou/uL (1.20-3.40); #Monocytes 0.7 thou/uL (0.11-0.59); #Neutrophils 4.5 thou/uL (1.40-6.50); %Basophils 0.6 % (0.0-1.0); %Eosinophils 1.3 % (0.0-10.0); %Lymphocytes 29.9 % (21.0-51.0); %Monocytes 8.6 % (0.0-10.0); %Neutrophils 59.6 % (42.0-75.0); Hemoglobin 13.7 g/dL (12.0-16.0); Mean Corpuscular Hemoglobin 31.3 pg (27.0-31.0); Mean Platelet Volume 8.3 fL (7.4-10.4); Platelet Count 271 thou/uL (130-400); RBC Distribution Width 11.5 % (11.5-14.5); Red Blood Cell (RBC) Count 4.39 mill/uL (4.20-5.40); White Blood Cell (WBC) Count 7.5 thou/uL (4.8-10.8)
[2021-11-03 12:14] LABS: ALT (SGPT) 20 U/L (8-55); AST (SGOT) 22 U/L (5-34); Albumin 3.8 g/dL (3.4-4.8); Alkaline Phosphatase 37 U/L (40-110); Anion Gap 15 mmol/L (10-20); BUN (Urea Nitrogen) 28 mg/dL (9.8-20.1); Bilirubin, Total 0.4 mg/dL (0.2-1.2); Calc. Creatinine Clearance 0 mL/min (70-130); Calcium 9.9 mg/dL (7.8-10.44); Carbon Dioxide 25 mmol/L (23-31); Chloride 103 mmol/L (98-107); Globulin 2.7 g/dL (2.4-3.5); Glucose 116 mg/dL (83-110); Lipase 46 U/L (8-78); Potassium 4.1 mmol/L (3.5-5.1); Protein, Total 6.5 g/dL (5.8-8.1); Sodium 139 mmol/L (136-145)
[2021-11-03] MEDS ORDERED: Midazolam HCl 2 mg/2 ml Vial ONE (14:06)
[2021-11-03] MEDS ORDERED: Fentanyl 100 MCG/2 ML VIAL ONE (14:06)
[2021-11-03] MEDS ORDERED: Dextrose 50% Abboject 50 ML SYRINGE SLOW IVP PRN (14:57)
[2021-11-03] MEDS ORDERED: Acetaminophen 325 MG TAB PO PRN (14:57)
[2021-11-03] MEDS ORDERED: Dextrose 5% in Water 1,000 ML IV PRN (14:57)
[2021-11-03] MEDS ORDERED: HumaLOG 300 UNITS/3 ML VIAL SC PRN (14:57)
[2021-11-03 16:07] VITALS: BMI 26.9
[2021-11-03] MEDS ORDERED: Flecainide 50 MG TAB PO SCH (21:00)
[2021-11-03] MEDS ORDERED: Atorvastatin Calcium 10 MG TAB PO SCH (21:00)
[2021-11-03] MEDS: Apixaban 5 MG TAB PO SCH (21:38)
[2021-11-03] MEDS: Flecainide 50 MG TAB PO SCH (21:39)
[2021-11-03] MEDS: Insulin Glargine 30 UNITS/0.3 ML VIAL SC SCH (21:42)
[2021-11-04 05:33] LABS: Anion Gap 15 mmol/L (10-20); BUN (Urea Nitrogen) 26 mg/dL (9.8-20.1); Calc. Creatinine Clearance 70 mL/min (70-130); Calcium 9.7 mg/dL (7.8-10.44); Carbon Dioxide 23 mmol/L (23-31); Chloride 106 mmol/L (98-107); Glucose 149 mg/dL (83-110); Potassium 3.9 mmol/L (3.5-5.1); Sodium 140 mmol/L (136-145)
[2021-11-04] MEDS ORDERED: Hydrochlorothiazide 25 MG TAB PO SCH (09:00)
[2021-11-04] MEDS ORDERED: Fenofibrate Nanocrystallized 145 MG TAB PO SCH (09:00)
[2021-11-04] MEDS ORDERED: Amlodipine 10 MG TAB PO SCH (09:00)
[2021-11-04] MEDS: Apixaban 5 MG TAB PO SCH (10:29)
[2021-11-04] MEDS: Flecainide 50 MG TAB PO SCH (10:29)
[2021-11-04] MEDS: Insulin Glargine 30 UNITS/0.3 ML VIAL SC SCH (10:30)
[2021-11-04 12:35] VITALS: BP 174/82; TEMP 97.8
== END 2021-11-04 15:20 | disposition home or self-care (01) ==
LOC: ERS 11:10 → SUATTDRO 11:10 → 2SW 14:51
PROVIDERS: ADMIT Internal Medicine; ATTEND Internal Medicine
DX: I48.91 Unspecified atrial fibrillation (principal); I49.5 Sick sinus syndrome; E11.9 Type 2 diabetes mellitus without complications; I10 Essential (primary) hypertension; I25.10 Atherosclerotic heart disease of native coronary artery without angina pectoris; E78.5 Hyperlipidemia, unspecified; M10.9 Gout, unspecified; Z91.81 History of falling; Z79.01 Long term (current) use of anticoagulants; Z79.4 Long term (current) use of insulin; Z79.84 Long term (current) use of oral hypoglycemic drugs; Z79.899 Other long term (current) drug therapy; Z88.1 Allergy status to other antibiotic agents; Z88.8 Allergy status to other drugs, medicaments and biological substances; Z95.0 Presence of cardiac pacemaker; Z20.822 Contact with and (suspected) exposure to COVID-19
CPT/HCPCS: 71045; 80048; 82962 ×2; 83690; 84484 ×2; 93005; 94760; 97530; G0378 ×3; U0003; U0005; 36415; 36416; 80053; 84443; 85025; 92960; 96374; 96375; J1815; J2250; J3010

== ENCOUNTER 2022-01-06 14:12 | Observation (INO) | payer MEDICARE ==
[2022-01-06] MEDS ORDERED: Aspirin Chewable 81 MG TAB ONE (15:14)
[2022-01-06 15:41] LABS: #Eosinphils 0.1 thou/uL (0.0-0.7); #Lymphocytes 1.9 thou/uL (1.20-3.40); #Monocytes 0.7 thou/uL (0.11-0.59); #Neutrophils 4.3 thou/uL (1.40-6.50); %Basophils 0.6 % (0.0-1.0); %Eosinophils 0.9 % (0.0-10.0); %Lymphocytes 26.9 % (21.0-51.0); %Monocytes 9.9 % (0.0-10.0); %Neutrophils 61.6 % (42.0-75.0); Hemoglobin 13.4 g/dL (12.0-16.0); Mean Corpuscular HGB CONC 34.4 g/dL (32.0-36.0); Mean Corpuscular Hemoglobin 30.9 pg (27.0-31.0); Mean Corpuscular Volume 89.8 fL (78.0-98.0); Mean Platelet Volume 8.3 fL (7.4-10.4); Platelet Count 225 thou/uL (130-400); RBC Distribution Width 11.9 % (11.5-14.5); Red Blood Cell (RBC) Count 4.33 mill/uL (4.20-5.40)
[2022-01-06 15:57] LABS: INR-International Normal Ratio 1.2; PTT 30.5 sec (22.9-36.1); Prothrombin Time 15.5 sec (12.0-14.7)
[2022-01-06 16:12] LABS: ALT (SGPT) 14 U/L (8-55); AST (SGOT) 15 U/L (5-34); Albumin 3.9 g/dL (3.4-4.8); Alkaline Phosphatase 51 U/L (40-110); Anion Gap 15 mmol/L (10-20); BUN (Urea Nitrogen) 24 mg/dL (9.8-20.1); Bilirubin, Total 0.4 mg/dL (0.2-1.2); Calc. Creatinine Clearance 0 mL/min (70-130); Calcium 9.5 mg/dL (7.8-10.44); Carbon Dioxide 26 mmol/L (23-31); Chloride 102 mmol/L (98-107); Estimated GFR 57; Globulin 2.5 g/dL (2.4-3.5); Glucose 140 mg/dL (83-110); Potassium 4.2 mmol/L (3.5-5.1); Protein, Total 6.4 g/dL (5.8-8.1); Sodium 139 mmol/L (136-145)
[2022-01-06] MEDS ORDERED: Acetaminophen 325 MG TAB PO PRN (18:33)
[2022-01-06] MEDS ORDERED: hydrALAZINE 20 MG/ML VIAL SLOW IVP PRN (18:33)
[2022-01-06] MEDS ORDERED: Acetaminophen 650 MG Suppository PR PRN (18:33)
[2022-01-06] MEDS ORDERED: Ondansetron PF 4 MG/2 ML Vial IVP PRN (18:33)
[2022-01-06] MEDS ORDERED: Ondansetron ODT 4 MG TAB PO PRN (18:33)
[2022-01-06] MEDS ORDERED: Atorvastatin Calcium 40 MG TAB PO SCH (21:00)
[2022-01-06 21:45] VITALS: BMI 25.0
[2022-01-06] MEDS: Apixaban 5 MG TAB PO SCH (22:05)
[2022-01-07 05:13] LABS: #Eosinphils 0.2 thou/uL (0.0-0.7); #Lymphocytes 2.7 thou/uL (1.20-3.40); #Monocytes 0.6 thou/uL (0.11-0.59); #Neutrophils 3.4 thou/uL (1.40-6.50); %Basophils 0.3 % (0.0-1.0); %Eosinophils 3.1 % (0.0-10.0); %Lymphocytes 38.7 % (21.0-51.0); %Monocytes 8.4 % (0.0-10.0); %Neutrophils 49.5 % (42.0-75.0); Hemoglobin 12.2 g/dL (12.0-16.0); Mean Corpuscular HGB CONC 34.2 g/dL (32.0-36.0); Mean Corpuscular Hemoglobin 30.9 pg (27.0-31.0); Mean Corpuscular Volume 90.2 fL (78.0-98.0); Mean Platelet Volume 8.4 fL (7.4-10.4); Platelet Count 200 thou/uL (130-400); Red Blood Cell (RBC) Count 3.96 mill/uL (4.20-5.40); White Blood Cell (WBC) Count 6.9 thou/uL (4.8-10.8)
[2022-01-07 05:27] LABS: Anion Gap 15 mmol/L (10-20); BUN (Urea Nitrogen) 26 mg/dL (9.8-20.1); Calc. Creatinine Clearance 55 mL/min (70-130); Calcium 9.6 mg/dL (7.8-10.44); Carbon Dioxide 27 mmol/L (23-31); Cardiac Risk 3.6 (Less than 4.5); Chloride 103 mmol/L (98-107); Cholesterol 116 mg/dl (< 200 Desired); Estimated GFR 61; Glucose 171 mg/dL (83-110); HDL Cholesterol 32 mg/dL (>60 Neg Risk); LDL Cholesterol, Calculated 53 mg/dL; Potassium 3.6 mmol/L (3.5-5.1); Sodium 141 mmol/L (136-145); Triglycerides 156 mg/dL (Less than 150)
[2022-01-07] MEDS ORDERED: Aspirin 81 mg Enteric Coated Tablet PO SCH (09:00)
[2022-01-07] MEDS: Apixaban 5 MG TAB PO SCH (09:36)
[2022-01-07] MEDS ORDERED: Insulin Regular 300 UNITS/3 ML VIAL SC PRN ×2 (10:45)
[2022-01-07] MEDS ORDERED: Dextrose 5% in Water 1,000 ML IV PRN (10:45)
[2022-01-07] MEDS ORDERED: Dextrose 50% Abboject 50 ML SYRINGE SLOW IVP PRN (10:45)
[2022-01-07] MEDS ORDERED: Insulin Glargine 30 UNITS/0.3 ML VIAL SC SCH ×3 (11:00→21:00)
[2022-01-07 16:43] VITALS: BP 144/91; TEMP 97.3
[2022-01-08] MEDS ORDERED: Insulin Glargine 30 UNITS/0.3 ML VIAL SC SCH (09:00)
[2022-01-08] MEDS ORDERED: Fenofibrate Nanocrystallized 145 MG TAB PO SCH (09:00)
== END 2022-01-07 19:32 | disposition home or self-care (01) ==
LOC: ERS 14:12 → NEURO 18:45
PROVIDERS: ADMIT Internal Medicine; ATTEND Physician Assistant
DX: R47.81 Slurred speech (principal); R41.0 Disorientation, unspecified; R29.6 Repeated falls; I48.91 Unspecified atrial fibrillation; E11.9 Type 2 diabetes mellitus without complications; I10 Essential (primary) hypertension; E78.5 Hyperlipidemia, unspecified; R53.1 Weakness; I25.10 Atherosclerotic heart disease of native coronary artery without angina pectoris; I48.92 Unspecified atrial flutter; I08.3 Combined rheumatic disorders of mitral, aortic and tricuspid valves; Z79.01 Long term (current) use of anticoagulants; Z79.4 Long term (current) use of insulin; Z79.84 Long term (current) use of oral hypoglycemic drugs; Z79.899 Other long term (current) drug therapy; Z88.1 Allergy status to other antibiotic agents; Z88.8 Allergy status to other drugs, medicaments and biological substances; Z95.0 Presence of cardiac pacemaker; Z20.822 Contact with and (suspected) exposure to COVID-19
CPT/HCPCS: 70450; 70551; 71045; 80048; 80053; 80061; 82962; 83036; 84484; 85025 ×2; 85610; 85730; 93005; 93306; 93880; 95712; 95819; 95957; 97116; 97535; 99285; G0378 ×3; U0003; U0005; 36415; 36416; J1815

== ENCOUNTER 2022-12-13 21:05 | Emergency (ER) | payer MEDICARE ==
[2022-12-13] MEDS ORDERED: hydrALAZINE 25 MG TAB ONE (21:55)
[2022-12-13 21:59] LABS: #Eosinphils 0.1 thou/uL (0.0-0.7); #Monocytes 0.6 thou/uL (0.11-0.59); #Neutrophils 3.9 thou/uL (1.40-6.50); %Basophils 0.5 % (0.0-1.0); %Eosinophils 1.2 % (0.0-10.0); %Lymphocytes 30.1 % (21.0-51.0); %Neutrophils 58.9 % (42.0-75.0); Hematocrit 33.7 % (36.0-47.0); Hemoglobin 11.5 g/dL (12.0-16.0); Mean Corpuscular HGB CONC 34.1 g/dL (32.0-36.0); Mean Corpuscular Hemoglobin 30.6 pg (27.0-31.0); Mean Corpuscular Volume 89.6 fl (78.0-98.0); Mean Platelet Volume 10.6 fL (7.4-10.4); Platelet Count 263 10x3/uL (130-400); RBC Distribution Width 11.8 % (11.5-14.5); Red Blood Cell (RBC) Count 3.76 mill/uL (4.20-5.40); White Blood Cell (WBC) Count 6.6 10x3/uL (4.8-10.8)
[2022-12-13 22:30] LABS: ALT (SGPT) 16 U/L (8-55); AST (SGOT) 23 U/L (5-34); Albumin 4.1 g/dL (3.4-4.8); Alkaline Phosphatase 34 U/L (40-110); Anion Gap 12 mmol/L (10-20); BUN (Urea Nitrogen) 20 mg/dL (9.8-20.1); Bilirubin, Total 0.3 mg/dL (0.2-1.2); CK (CPK) 155 U/L (29-168); Calc. Creatinine Clearance 0 mL/min (70-130); Calcium 9.9 mg/dL (7.8-10.44); Carbon Dioxide 25 mmol/L (23-31); Chloride 103 mmol/L (98-107); Estimated GFR 66; Globulin 2.8 g/dL (2.4-3.5); Glucose 140 mg/dL (83-110); Potassium 3.4 mmol/L (3.5-5.1); Protein, Total 6.9 g/dL (5.8-8.1); Sodium 137 mmol/L (136-145)
[2022-12-14 00:15] LABS: Bacteria/HPF None Seen HPF (None Seen); Bilirubin Negative (Negative); Blood, Urine Negative (Negative); CAUTI Indications for Culture Alt mental st,lethar; Clarity Clear (Clear); Glucose, Urine (Dipstick) Normal (Negative); Ketone, Urine Negative (Negative); Leukocyte Negative Leu/uL (Negative); Nitrite Negative (Negative); Protein, Urine (Dipstick) Negative (Neg-Trace); RBC/HPF 0-3 HPF (0-3); Specific Gravity, Urine 1.003 (1.002-1.036); Squamous Epithelial None Seen HPF (0-3); Urobilinogen Normal mg/dL (Less than 2); WBC/HPF 0-3 HPF (0-3); pH, Urine 6.5 (5.0-9.0)
[2022-12-14 00:26] LABS: Urine Culture Reflex No No
== END 2022-12-14 01:02 | disposition home or self-care (01) ==
LOC: ERS 21:05
DX: I10 Essential (primary) hypertension (principal); R53.1 Weakness; E11.9 Type 2 diabetes mellitus without complications; I48.91 Unspecified atrial fibrillation; Z79.01 Long term (current) use of anticoagulants; Z79.84 Long term (current) use of oral hypoglycemic drugs; Z79.899 Other long term (current) drug therapy; Z79.4 Long term (current) use of insulin
CPT/HCPCS: 80053; 81001; 82550; 83605; 83880; 84484; 85025; 93005

== ENCOUNTER 2023-07-19 12:45 | Emergency (ER) | payer MEDICARE ==
[2023-07-19] MEDS ORDERED: Lidocaine 4% Patch TD SCH (14:30)
[2023-07-20] MEDS ORDERED: Transdermal Patch Removal TOP SCH (03:00)
== END 2023-07-19 15:25 | disposition home or self-care (01) ==
LOC: ERS 12:45
DX: M79.605 Pain in left leg (principal); I10 Essential (primary) hypertension; E11.9 Type 2 diabetes mellitus without complications; I48.91 Unspecified atrial fibrillation; Z95.0 Presence of cardiac pacemaker; Z79.01 Long term (current) use of anticoagulants; Z75.3 Unavailability and inaccessibility of health-care facilities

== ENCOUNTER 2024-07-14 12:45 | Outpatient (CLI) | payer MEDICARE | END 2024-07-14 12:46 | disposition home or self-care (01) | LOC: BICMAMMO 12:45 | PROVIDERS: ATTEND Family Medicine | DX: Z12.31 Encounter for screening mammogram for malignant neoplasm of breast (principal); Z85.828 Personal history of other malignant neoplasm of skin | CPT/HCPCS: 77063; 77067 ==